=== PATIENT | female | born 1970 | race Caucasian/White ===

== ENCOUNTER 2017-06-21 07:35 | Day surgery (SDC) | payer OTHER ==
[~2017-06-21] VITALS: Ht 167.6 cm; Wt 77.3 kg
[~2017-06-21 07:35] MED LIST: CYCL-1 PO; HYDR-3965 PO; PANT-47 PO; SUCR1TAB34 PO; TRAZ-146 PO
[2017-06-21 07:40] VITALS: BP 107/73
[2017-06-21] MEDS ORDERED: fentaNYL/PF 50MCG/1 ML 2ML syringe ONE ×2 (07:54→09:15)
[2017-06-21] MEDS ORDERED: MIDAZolam 1mg/ml 10ml vial ONE (07:54)
[2017-06-21] MEDS ORDERED: CYCL-1 PO (08:00)
[2017-06-21] MEDS ORDERED: TRAZ-146 PO (08:01)
[2017-06-21] MEDS ORDERED: PANT-47 PO (08:04)
[2017-06-21 09:41] VITALS: BP 104/71
[2017-06-21 09:51] VITALS: BP 96/65
[2017-06-21 10:01] VITALS: BP 95/64
[2017-06-21 10:10] VITALS: BP 94/65
== END 2017-06-21 10:15 | disposition home or self-care (01) ==
LOC: GI LAB 07:35
PROVIDERS: ATTEND Internal Medicine Gastroenterology
DX: K52.9 Noninfective gastroenteritis and colitis, unspecified (principal); Z88.0 Allergy status to penicillin; Z88.6 Allergy status to analgesic agent; Z88.2 Allergy status to sulfonamides
CPT/HCPCS: 45380; 99152; J2250; J3010; J7030; A4620; G0500

== ENCOUNTER 2017-08-14 13:56 | Emergency (ER) | payer OTHER ==
[~2017-08-14] VITALS: Ht 167.6 cm; Wt 74.0 kg
[~2017-08-14 13:56] MED LIST changes: -HYDR-3965 PO; -SUCR1TAB34 PO
[2017-08-14] MEDS ORDERED: aspirin 81mg tab.chew PO ONE (14:10)
[2017-08-14 14:23] LABS: BASOPHILS % (AUTO) 0.5 % (0-1); EOSINOPHILS # (AUTO) 0.1 X10'3 (0-0.9); EOSINOPHILS % (AUTO) 2.3 % (0-6); HEMATOCRIT 38.5 % (35.0-45.0); HEMOGLOBIN 13.3 g/dl (12.0-16.0); LYMPHOCYTES # (AUTO) 2.2 X10'3 (1.1-4.8); LYMPHOCYTES % (AUTO) 36.8 % (21-51); MEAN CORPUSCULAR HEMOGLOBIN 30.9 PG (27.0-31.0); MEAN CORPUSCULAR HGB CONC 34.5 % (33.0-36.5); MEAN CORPUSCULAR VOLUME 89.8 FL (78-98); MEAN PLATELET VOLUME 8.6 FL (7.4-10.4); MONOCYTES # (AUTO) 0.4 X10'3 (0-0.9); MONOCYTES % (AUTO) 6.7 % (2-12); NEUTROPHILS # (AUTO) 3.3 X10'3 (1.8-7.7); NEUTROPHILS % (AUTO) 53.7 % (42-75); PLATELET COUNT 329 X10'3 (140-440); RED BLOOD COUNT 4.29 X10'6 (4.20-5.60); RED CELL DISTRIBUTION WIDTH 14.5 % (11.5-14.5); WHITE BLOOD COUNT 6.1 X10'3 (4.5-11.0)
[2017-08-14 14:33] LABS: D-DIMER 0.53 MG/L FEU (0-0.50)
[2017-08-14 14:45] LABS: ALANINE AMINOTRANSFERASE 21 U/L (12-78); ALBUMIN 4.1 G/DL (3.4-5.0); ALKALINE PHOSPHATASE 84 IU/L (46-116); ANION GAP 10 (8-16); ASPARTATE AMINO TRANSFERASE 19 U/L (10-37); BILIRUBIN,TOTAL 0.6 MG/DL (0.1-1.0); BLOOD UREA NITROGEN 19 MG/DL (7-18); BUN/CREATININE RATIO 22.1 (6.6-38.0); CALCIUM 9.5 MG/DL (8.5-10.1); CHLORIDE 103 MMOL/L (99-107); CREATININE 0.86 MG/DL (0.40-0.90); GLUCOSE 104 MG/DL (70-104); MAGNESIUM 1.9 MG/DL (1.5-2.4); POTASSIUM 3.5 MMOL/L (3.5-5.1); SODIUM 140 MMOL/L (135-145); TOTAL CARBON DIOXIDE 26.6 MMOL/L (24-32); TOTAL PROTEIN 8.3 G/DL (6.4-8.2); eGFR 71 ML/MIN
[2017-08-14] MEDS ORDERED: iohexol 350MG/ML 100ml bottle IV ONE (16:11)
[2017-08-14] MEDS ORDERED: ondansetron/PF 4mg/2ml inj IV ONE (16:30)
[2017-08-14 17:14] VITALS: BP 110/76
== END 2017-08-14 17:15 | disposition home or self-care (01) ==
LOC: ER 13:56
DX: R07.89 Other chest pain (principal); R06.02 Shortness of breath; M25.512 Pain in left shoulder; K21.9 Gastro-esophageal reflux disease without esophagitis; Z88.6 Allergy status to analgesic agent; Z88.1 Allergy status to other antibiotic agents; Z88.0 Allergy status to penicillin; Z88.2 Allergy status to sulfonamides
CPT/HCPCS: 36415; 71045; 71275; 80053; 83735; 83880; 84484; 85025; 85379; 93005; 96374; 99285; J2405; J7030; Q9967

== ENCOUNTER 2017-10-09 08:36 | Emergency (ER) | payer OTHER ==
[~2017-10-09] VITALS: Ht 167.6 cm; Wt 79.0 kg
[2017-10-09 09:39] LABS: BASOPHILS # (AUTO) 0.1 X10'3 (0-0.2); BASOPHILS % (AUTO) 1.3 % (0-1); EOSINOPHILS # (AUTO) 0.1 X10'3 (0-0.9); EOSINOPHILS % (AUTO) 2.4 % (0-6); HEMATOCRIT 39.7 % (35.0-45.0); HEMOGLOBIN 13.6 g/dl (12.0-16.0); LYMPHOCYTES # (AUTO) 1.3 X10'3 (1.1-4.8); MEAN CORPUSCULAR HEMOGLOBIN 30.7 PG (27.0-31.0); MEAN CORPUSCULAR HGB CONC 34.2 % (33.0-36.5); MEAN CORPUSCULAR VOLUME 89.9 FL (78-98); MEAN PLATELET VOLUME 9.2 FL (7.4-10.4); MONOCYTES # (AUTO) 0.3 X10'3 (0-0.9); MONOCYTES % (AUTO) 6.8 % (2-12); NEUTROPHILS # (AUTO) 2.8 X10'3 (1.8-7.7); NEUTROPHILS % (AUTO) 61.5 % (42-75); PLATELET COUNT 321 X10'3 (140-440); RED BLOOD COUNT 4.41 X10'6 (4.20-5.60); RED CELL DISTRIBUTION WIDTH 15.1 % (11.5-14.5); WHITE BLOOD COUNT 4.6 X10'3 (4.5-11.0)
[2017-10-09 09:47] LABS: PROTHROMBIN TIME 9.9 SECONDS (9.0-12.0)
[2017-10-09 09:55] LABS: ALANINE AMINOTRANSFERASE 27 U/L (12-78); ALBUMIN 3.6 G/DL (3.4-5.0); ALBUMIN/GLOBULIN RATIO 0.9 (1.1-1.5); ALKALINE PHOSPHATASE 88 IU/L (46-116); ANION GAP 11 (8-16); ASPARTATE AMINO TRANSFERASE 17 U/L (10-37); BILIRUBIN,TOTAL 0.8 MG/DL (0.1-1.0); BLOOD UREA NITROGEN 21 MG/DL (7-18); BUN/CREATININE RATIO 27.6 (6.6-38.0); CALCIUM 9.2 MG/DL (8.5-10.1); CHLORIDE 106 MMOL/L (99-107); CREATININE 0.76 MG/DL (0.40-0.90); GLUCOSE 98 MG/DL (70-104); POTASSIUM 4.1 MMOL/L (3.5-5.1); SODIUM 139 MMOL/L (135-145); TOTAL CARBON DIOXIDE 22.4 MMOL/L (24-32); TOTAL PROTEIN 7.6 G/DL (6.4-8.2); eGFR 81 ML/MIN
[2017-10-09] MEDS ORDERED: LIDOcaine Viscous 15ml cup MM ONE (10:20)
[2017-10-09] MEDS ORDERED: sucralfate 1gm/10ml UD suspension PO ONE (10:20)
[2017-10-09] MEDS ORDERED: SUCR1ORA2 PO (10:42)
[2017-10-09 11:20] VITALS: BP 138/78
== END 2017-10-09 11:22 | disposition home or self-care (01) ==
LOC: ER 08:36
DX: R12 Heartburn (principal); R10.9 Unspecified abdominal pain; R19.7 Diarrhea, unspecified; K21.9 Gastro-esophageal reflux disease without esophagitis; Z90.710 Acquired absence of both cervix and uterus; Z88.0 Allergy status to penicillin; Z88.2 Allergy status to sulfonamides; Z88.5 Allergy status to narcotic agent; F19.10 Other psychoactive substance abuse, uncomplicated
CPT/HCPCS: 36415; 80053; 85025; 85610; 93005; 99285

== ENCOUNTER 2018-01-16 02:49 | Emergency (ER) | payer OTHER ==
[~2018-01-16] VITALS: Ht 167.6 cm; Wt 81.4 kg
[~2018-01-16 02:49] MED LIST changes: +HYDR-569 PO; +ONDA4TAB9 SL; +PROC25SU31 RC; +SUCR1ORA2 PO
[2018-01-16] MEDS ORDERED: metoclopramide 5 mg/ml inj IV ONE (03:10)
[2018-01-16] MEDS ORDERED: normal saline 1000ML IV soln IVB ONE (03:10)
[2018-01-16] MEDS ORDERED: diphenhydrAMINE 50 mg/ml inj IV ONE (03:10)
[2018-01-16] MEDS ORDERED: LORazepam 2 mg/ml vial IV ONE (03:10)
[2018-01-16 03:42] LABS: CLARITY,URINE SLIGHTLY CLOUDY (Clear); COLOR,URINE YELLOW (Yellow); GLUCOSE, URINE NEGATIVE (Neg); KETONES,URINE NEGATIVE (Neg); LEUKOCYTE ESTERASE ,URINE SMALL (Neg); NITRITES, URINE NEGATIVE (Neg); OCCULT BLOOD,URINE SMALL (Neg); PH,URINE 5.5 (4.8-8.0); PROTEIN,URINE NEGATIVE (Neg); UROBILINOGEN,URINE 0.2 E.U/dL (0.2-1.0)
[2018-01-16 03:45] LABS: URINE HCG NEGATIVE (NEG)
[2018-01-16] MEDS ORDERED: glycopyrrolate 0.2mg/ml inj IV ONE (03:45)
[2018-01-16 03:48] LABS: UA COLLECTION TYPE CLN CATCH MIDSTREAM
[2018-01-16 03:49] LABS: BACTERIA,URINE FEW /HPF (Neg); RBC,URINE 0-2 /HPF (0-2); SQUAMOUS EPITHELIAL CELL,UR MODERATE /LPF (FEW)
[2018-01-16 03:59] LABS: BASOPHILS % (AUTO) 0.1 % (0-1); EOSINOPHILS # (AUTO) 0.1 X10'3 (0-0.9); EOSINOPHILS % (AUTO) 0.9 % (0-6); HEMATOCRIT 38.6 % (35.0-45.0); LYMPHOCYTES # (AUTO) 0.7 X10'3 (1.1-4.8); LYMPHOCYTES % (AUTO) 6.4 % (21-51); MEAN CORPUSCULAR HEMOGLOBIN 30.3 PG (27.0-31.0); MEAN CORPUSCULAR HGB CONC 33.7 % (33.0-36.5); MEAN CORPUSCULAR VOLUME 89.9 FL (78-98); MONOCYTES # (AUTO) 0.6 X10'3 (0-0.9); MONOCYTES % (AUTO) 5.5 % (2-12); NEUTROPHILS # (AUTO) 8.9 X10'3 (1.8-7.7); NEUTROPHILS % (AUTO) 87.1 % (42-75); PLATELET COUNT 299 X10'3 (140-440); RED CELL DISTRIBUTION WIDTH 14.8 % (11.5-14.5); WHITE BLOOD COUNT 10.2 X10'3 (4.5-11.0)
[2018-01-16 04:09] LABS: PROTHROMBIN TIME 10.6 SECONDS (9.0-12.0)
[2018-01-16 04:14] LABS: ALANINE AMINOTRANSFERASE 20 U/L (12-78); ALBUMIN 3.3 G/DL (3.4-5.0); ALBUMIN/GLOBULIN RATIO 0.9 (1.1-1.5); ALKALINE PHOSPHATASE 84 IU/L (46-116); ANION GAP 13 (8-16); ASPARTATE AMINO TRANSFERASE 15 U/L (10-37); BILIRUBIN,TOTAL 0.6 MG/DL (0.1-1.0); BLOOD UREA NITROGEN 13 MG/DL (7-18); BUN/CREATININE RATIO 16.3 (6.6-38.0); CALCIUM 8.8 MG/DL (8.5-10.1); CHLORIDE 106 MMOL/L (99-107); GLUCOSE 112 MG/DL (70-104); LIPASE 227 U/L (73-393); POTASSIUM 3.6 MMOL/L (3.5-5.1); SODIUM 140 MMOL/L (135-145); TOTAL CARBON DIOXIDE 20.7 MMOL/L (24-32); TOTAL PROTEIN 7.1 G/DL (6.4-8.2); eGFR 77 ML/MIN
[2018-01-16] MEDS ORDERED: CefTRIAXone 2gm/D5W 50ml 50 ML IV ONE (04:40)
[2018-01-16 04:57] VITALS: BP 147/88
== END 2018-01-16 05:42 | disposition home or self-care (01) ==
LOC: ER 02:50
DX: N39.0 Urinary tract infection, site not specified (principal); E86.0 Dehydration; R10.13 Epigastric pain; R19.7 Diarrhea, unspecified; R11.2 Nausea with vomiting, unspecified; K21.9 Gastro-esophageal reflux disease without esophagitis; F19.10 Other psychoactive substance abuse, uncomplicated; Z90.710 Acquired absence of both cervix and uterus; Z79.899 Other long term (current) drug therapy; Z88.0 Allergy status to penicillin; Z88.2 Allergy status to sulfonamides; Z88.5 Allergy status to narcotic agent; Z87.891 Personal history of nicotine dependence
CPT/HCPCS: 36415; 80053; 81001; 81025; 83690; 85025; 85610; 87088; 96361; 96365; 96375; 99284; J0696; J1200; J2060; J2765; J3490; J7030

== ENCOUNTER 2018-02-01 07:39 | Day surgery (SDC) | payer OTHER ==
[~2018-02-01] VITALS: Ht 167.6 cm; Wt 80.9 kg
[~2018-02-01 07:39] MED LIST changes: -ONDA4TAB9 SL; -TRAZ-146 PO; +TRAZ-219 PO
[2018-02-01 07:46] VITALS: BP 134/80
[2018-02-01] MEDS ORDERED: LIDOcaine Viscous 15ml cup ONE (07:47)
[2018-02-01] MEDS ORDERED: fentaNYL/PF 50MCG/1 ML 2ML syringe ONE (07:47)
[2018-02-01] MEDS ORDERED: MIDAZolam 5mg/5ml vial ONE (07:47)
[2018-02-01] MEDS ORDERED: SUCR1TAB PO (08:09)
[2018-02-01 09:21] VITALS: BP 98/65
[2018-02-01 09:31] VITALS: BP 109/71
[2018-02-01 09:41] VITALS: BP 107/69
[2018-02-01 09:51] VITALS: BP 106/77
== END 2018-02-01 10:05 | disposition home or self-care (01) ==
LOC: GI LAB 07:39
PROVIDERS: ATTEND Internal Medicine Gastroenterology
DX: K31.89 Other diseases of stomach and duodenum (principal); K21.9 Gastro-esophageal reflux disease without esophagitis; M19.072 Primary osteoarthritis, left ankle and foot; M19.071 Primary osteoarthritis, right ankle and foot; B19.20 Unspecified viral hepatitis C without hepatic coma; F03.90 Unspecified dementia, unspecified severity, without behavioral disturbance, psychotic disturbance, mood disturbance, and anxiety; J45.998 Other asthma; G89.29 Other chronic pain; F43.10 Post-traumatic stress disorder, unspecified; I25.2 Old myocardial infarction; F32.89 Other specified depressive episodes; Z79.82 Long term (current) use of aspirin; Z87.11 Personal history of peptic ulcer disease; Z79.891 Long term (current) use of opiate analgesic; Z88.0 Allergy status to penicillin; Z88.5 Allergy status to narcotic agent; Z93.6 Other artificial openings of urinary tract status; Z87.440 Personal history of urinary (tract) infections; Z88.6 Allergy status to analgesic agent; Z88.1 Allergy status to other antibiotic agents; Z72.89 Other problems related to lifestyle; Z90.710 Acquired absence of both cervix and uterus; Z88.2 Allergy status to sulfonamides; Z88.8 Allergy status to other drugs, medicaments and biological substances; Z87.891 Personal history of nicotine dependence; Z98.890 Other specified postprocedural states; Z79.899 Other long term (current) drug therapy; Z82.49 Family history of ischemic heart disease and other diseases of the circulatory system; Z83.49 Family history of other endocrine, nutritional and metabolic diseases; Z82.3 Family history of stroke
CPT/HCPCS: 43235; 99152; J2250; J3010; J7030; A4620; G0500

== ENCOUNTER 2018-04-22 11:31 | Emergency (ER) | payer OTHER ==
[~2018-04-22] VITALS: Ht 167.6 cm; Wt 77.3 kg
[~2018-04-22 11:31] MED LIST changes: +HYDR-4383 PO; -HYDR-569 PO; -PROC25SU31 RC; +SUCR1TAB PO
[2018-04-22 12:12] LABS: BASOPHILS # (AUTO) 0.1 X10'3 (0-0.2); BASOPHILS % (AUTO) 1.6 % (0-1); EOSINOPHILS # (AUTO) 0.1 X10'3 (0-0.9); HEMATOCRIT 37.2 % (35.0-45.0); HEMOGLOBIN 12.6 g/dl (12.0-16.0); LYMPHOCYTES # (AUTO) 1.6 X10'3 (1.1-4.8); LYMPHOCYTES % (AUTO) 30.9 % (21-51); MEAN CORPUSCULAR HEMOGLOBIN 30.4 PG (27.0-31.0); MEAN CORPUSCULAR HGB CONC 33.9 % (33.0-36.5); MEAN CORPUSCULAR VOLUME 89.7 FL (78-98); MEAN PLATELET VOLUME 9.4 FL (7.4-10.4); MONOCYTES # (AUTO) 0.3 X10'3 (0-0.9); MONOCYTES % (AUTO) 6.1 % (2-12); NEUTROPHILS # (AUTO) 3.2 X10'3 (1.8-7.7); NEUTROPHILS % (AUTO) 60.4 % (42-75); PLATELET COUNT 332 X10'3 (140-440); RED BLOOD COUNT 4.15 X10'6 (4.20-5.60); RED CELL DISTRIBUTION WIDTH 14.8 % (11.5-14.5); WHITE BLOOD COUNT 5.3 X10'3 (4.5-11.0)
[2018-04-22 12:27] LABS: ALANINE AMINOTRANSFERASE 23 U/L (12-78); ALBUMIN 3.5 G/DL (3.4-5.0); ALBUMIN/GLOBULIN RATIO 0.9 (1.1-1.5); ALKALINE PHOSPHATASE 83 IU/L (46-116); ANION GAP 9 (8-16); ASPARTATE AMINO TRANSFERASE 18 U/L (10-37); BILIRUBIN,TOTAL 0.5 MG/DL (0.1-1.0); BLOOD UREA NITROGEN 19 MG/DL (7-18); BUN/CREATININE RATIO 22.6 (6.6-38.0); CALCIUM 8.5 MG/DL (8.5-10.1); CHLORIDE 105 MMOL/L (99-107); CREATININE 0.84 MG/DL (0.40-0.90); GLUCOSE 104 MG/DL (70-104); POTASSIUM 3.8 MMOL/L (3.5-5.1); SODIUM 139 MMOL/L (135-145); TOTAL CARBON DIOXIDE 25.2 MMOL/L (24-32); TOTAL PROTEIN 7.4 G/DL (6.4-8.2); eGFR 72 ML/MIN
[2018-04-22 12:30] LABS: PROTHROMBIN TIME 10.1 SECONDS (9.0-12.0)
[2018-04-22 12:31] LABS: PARTIAL THROMBOPLASTIN TIME 26 SECONDS (22-32)
[2018-04-22 13:35] VITALS: BP 124/81
== END 2018-04-22 13:36 | disposition home or self-care (01) ==
LOC: ER 11:31
DX: R07.9 Chest pain, unspecified (principal); R42 Dizziness and giddiness; R06.02 Shortness of breath; R11.0 Nausea; R20.0 Anesthesia of skin; K21.9 Gastro-esophageal reflux disease without esophagitis; F19.10 Other psychoactive substance abuse, uncomplicated; Z88.0 Allergy status to penicillin; Z88.2 Allergy status to sulfonamides; Z88.6 Allergy status to analgesic agent; Z98.890 Other specified postprocedural states; Z90.49 Acquired absence of other specified parts of digestive tract; Z95.1 Presence of aortocoronary bypass graft; Z93.6 Other artificial openings of urinary tract status; Z98.61 Coronary angioplasty status
CPT/HCPCS: 36415; 71045; 80053; 84484; 85025; 85610; 85730; 93005; 99285

== ENCOUNTER 2018-09-01 14:10 | Emergency (ER) | payer OTHER ==
[~2018-09-01] VITALS: Ht 167.6 cm; Wt 80.0 kg
[2018-09-01] MEDS ORDERED: ondansetron 4mg rapidly disintigrating tab PO ONE (14:40)
[2018-09-01] MEDS ORDERED: mag hydrox/Alum hydrox/simeth 30ml oral suspension PO ONE (14:40)
[2018-09-01] MEDS ORDERED: famotidine 20mg tablet PO ONE (14:40)
[2018-09-01 15:01] LABS: BASOPHILS # (AUTO) 0.1 X10'3 (0-0.2); BASOPHILS % (AUTO) 1.4 % (0-1); EOSINOPHILS # (AUTO) 0.1 X10'3 (0-0.9); HEMOGLOBIN 13.3 g/dl (12.0-16.0); LYMPHOCYTES # (AUTO) 1.8 X10'3 (1.1-4.8); MEAN CORPUSCULAR HEMOGLOBIN 30.4 PG (27.0-31.0); MEAN CORPUSCULAR VOLUME 89.4 FL (78-98); MEAN PLATELET VOLUME 8.9 FL (7.4-10.4); MONOCYTES # (AUTO) 0.4 X10'3 (0-0.9); MONOCYTES % (AUTO) 6.6 % (2-12); NEUTROPHILS # (AUTO) 4.2 X10'3 (1.8-7.7); PLATELET COUNT 305 X10'3 (140-440); RED BLOOD COUNT 4.37 X10'6 (4.20-5.60); RED CELL DISTRIBUTION WIDTH 14.2 % (11.5-14.5); WHITE BLOOD COUNT 6.6 X10'3 (4.5-11.0)
[2018-09-01 15:12] LABS: PROTHROMBIN TIME 10.4 SECONDS (9.0-12.0)
[2018-09-01 15:13] LABS: CLARITY,URINE SLIGHTLY CLOUDY (Clear); COLOR,URINE YELLOW (Yellow); GLUCOSE, URINE NEGATIVE (Neg); KETONES,URINE NEGATIVE (Neg); LEUKOCYTE ESTERASE ,URINE NEGATIVE (Neg); NITRITES, URINE NEGATIVE (Neg); OCCULT BLOOD,URINE TRACE-LYSED (Neg); PH,URINE 5.5 (4.8-8.0); PROTEIN,URINE NEGATIVE (Neg); UA COLLECTION TYPE CLN CATCH MIDSTREAM; UROBILINOGEN,URINE 0.2 E.U/dL (0.2-1.0)
[2018-09-01 15:20] LABS: BACTERIA,URINE FEW /HPF (Neg); MUCUS STRANDS FEW /LPF (Neg); RBC,URINE 0-2 /HPF (0-2); SQUAMOUS EPITHELIAL CELL,UR MANY /LPF (FEW)
[2018-09-01 15:21] LABS: ALANINE AMINOTRANSFERASE 32 U/L (12-78); ALKALINE PHOSPHATASE 82 IU/L (46-116); ANION GAP 13 (8-16); ASPARTATE AMINO TRANSFERASE 20 U/L (10-37); BILIRUBIN,TOTAL 0.5 MG/DL (0.1-1.0); BLOOD UREA NITROGEN 15 MG/DL (7-18); BUN/CREATININE RATIO 19.5 (6.6-38.0); CALCIUM 9.3 MG/DL (8.5-10.1); CHLORIDE 104 MMOL/L (99-107); CREATININE 0.77 MG/DL (0.40-0.90); GLUCOSE 91 MG/DL (70-104); LIPASE 312 U/L (73-393); POTASSIUM 3.9 MMOL/L (3.5-5.1); SODIUM 140 MMOL/L (135-145); TOTAL CARBON DIOXIDE 22.6 MMOL/L (24-32); TOTAL PROTEIN 8.1 G/DL (6.4-8.2); eGFR 80 ML/MIN
[2018-09-01 15:21] LABS: URINE HCG NEGATIVE (NEG)
[2018-09-01] MEDS ORDERED: metoclopramide 10mg tablet PO ONE (15:50)
[2018-09-01] MEDS ORDERED: HYDROcodone/acetaminophen 5mg/325mg tablet PO ONE (15:50)
[2018-09-01] MEDS ORDERED: ONDA8TAB13 PO (15:51)
[2018-09-01] MEDS ORDERED: PROM25SU46 RC (15:51)
[2018-09-01 16:04] VITALS: BP 121/70
== END 2018-09-01 16:06 | disposition home or self-care (01) ==
LOC: ER 14:10
DX: R10.84 Generalized abdominal pain (principal); R11.10 Vomiting, unspecified; K21.9 Gastro-esophageal reflux disease without esophagitis; F19.10 Other psychoactive substance abuse, uncomplicated; Z86.19 Personal history of other infectious and parasitic diseases; Z90.710 Acquired absence of both cervix and uterus; Z98.890 Other specified postprocedural states; Z98.61 Coronary angioplasty status; Z88.0 Allergy status to penicillin; Z88.2 Allergy status to sulfonamides; Z88.5 Allergy status to narcotic agent; Z88.8 Allergy status to other drugs, medicaments and biological substances; Z79.899 Other long term (current) drug therapy
CPT/HCPCS: 36415; 80053; 81001; 81025; 83690; 85025; 85610; 99284; J8597

== ENCOUNTER 2019-01-05 05:32 | Emergency (ER) | payer OTHER ==
[~2019-01-05] VITALS: Ht 167.6 cm; Wt 76.9 kg
[~2019-01-05 05:32] MED LIST changes: +ONDA8TAB13 PO; +PROM25SU46 RC
[2019-01-05] MEDS ORDERED: haloperidol lactate 5mg/ml inj IM ONE (06:15)
[2019-01-05] MEDS ORDERED: LORazepam 2 mg/ml vial IM ONE (06:15)
[2019-01-05] MEDS ORDERED: normal saline 1000ML IV soln IVB ONE (06:20)
--- NOTE | 2019-01-05 06:25 | NUR ---
PT DIFFICULT IV START, MD LEIGH INFORMED AND PLACING ORDERS FOR IM MEDS FOR N/V
[2019-01-05 07:17] LABS: BASOPHILS % (AUTO) 0.6 % (0-1); EOSINOPHILS % (AUTO) 0.7 % (0-6); HEMATOCRIT 41.5 % (35.0-45.0); HEMOGLOBIN 13.8 g/dl (12.0-16.0); LYMPHOCYTES # (AUTO) 0.9 X10'3 (1.1-4.8); LYMPHOCYTES % (AUTO) 14.1 % (21-51); MEAN CORPUSCULAR HEMOGLOBIN 30.6 PG (27.0-31.0); MEAN CORPUSCULAR HGB CONC 33.3 g/dL (33.0-36.5); MEAN PLATELET VOLUME 9.9 FL (7.4-10.4); MONOCYTES # (AUTO) 0.3 X10'3 (0-0.9); MONOCYTES % (AUTO) 4.6 % (2-12); NEUTROPHILS # (AUTO) 4.9 X10'3 (1.8-7.7); PLATELET COUNT 296 X10'3 (140-440); RED BLOOD COUNT 4.51 X10'6 (4.20-5.60); RED CELL DISTRIBUTION WIDTH 14.2 % (11.5-14.5); WHITE BLOOD COUNT 6.1 X10'3 (4.5-11.0)
[2019-01-05 07:32] LABS: ALANINE AMINOTRANSFERASE 20 U/L (12-78); ALBUMIN 3.9 G/DL (3.4-5.0); ALKALINE PHOSPHATASE 83 IU/L (46-116); ANION GAP 14 (8-16); ASPARTATE AMINO TRANSFERASE 15 U/L (10-37); BILIRUBIN,TOTAL 0.6 MG/DL (0.1-1.0); BLOOD UREA NITROGEN 14 MG/DL (7-18); BUN/CREATININE RATIO 14.3 (6.6-38.0); CALCIUM 9.3 MG/DL (8.5-10.1); CHLORIDE 106 MMOL/L (99-107); CREATININE 0.98 MG/DL (0.40-0.90); GLUCOSE 140 MG/DL (70-104); LIPASE 381 U/L (73-393); POTASSIUM 3.3 MMOL/L (3.5-5.1); SODIUM 140 MMOL/L (135-145); TOTAL CARBON DIOXIDE 20.3 MMOL/L (24-32); TOTAL PROTEIN 7.8 G/DL (6.4-8.2); eGFR 60 ML/MIN
[2019-01-05 09:26] VITALS: BP 106/62
== END 2019-01-05 09:27 | disposition home or self-care (01) ==
LOC: ER 05:33
DX: R11.2 Nausea with vomiting, unspecified (principal); F12.929 Cannabis use, unspecified with intoxication, unspecified; F19.10 Other psychoactive substance abuse, uncomplicated; R10.84 Generalized abdominal pain; K21.9 Gastro-esophageal reflux disease without esophagitis; F41.9 Anxiety disorder, unspecified; F20.9 Schizophrenia, unspecified; Z86.19 Personal history of other infectious and parasitic diseases; Z90.710 Acquired absence of both cervix and uterus; Z98.890 Other specified postprocedural states; Z88.0 Allergy status to penicillin; Z88.2 Allergy status to sulfonamides; Z88.5 Allergy status to narcotic agent; Z88.8 Allergy status to other drugs, medicaments and biological substances; Z79.899 Other long term (current) drug therapy
CPT/HCPCS: 36415; 80053; 83690; 85025; 85610; 93005; 96360; 96361; 96372; 99284; J1630; J2060; J7030

== ENCOUNTER 2019-06-18 18:47 | Emergency (ER) | payer MEDICAID, OTHER ==
[~2019-06-18] VITALS: Ht 167.6 cm; Wt 69.5 kg
[2019-06-18] MEDS ORDERED: LORazepam 2 mg/ml vial IV ONE (19:25)
[2019-06-18] MEDS ORDERED: normal saline 1000ML IV soln IVB ONE ×2 (19:25)
[2019-06-18] MEDS ORDERED: metoclopramide 5 mg/ml inj IV ONE (19:25)
[2019-06-18] MEDS ORDERED: diphenhydrAMINE 50 mg/ml inj IV ONE (19:25)
[2019-06-18 20:04] LABS: BASOPHILS % (AUTO) 0.5 % (0-1); EOSINOPHILS % (AUTO) 0.5 % (0-6); HEMATOCRIT 37.8 % (35.0-45.0); HEMOGLOBIN 12.8 g/dl (12.0-16.0); LYMPHOCYTES # (AUTO) 0.2 X10'3 (1.1-4.8); LYMPHOCYTES % (AUTO) 4.8 % (21-51); MEAN CORPUSCULAR HEMOGLOBIN 30.9 PG (27.0-31.0); MEAN CORPUSCULAR HGB CONC 33.9 g/dL (33.0-36.5); MEAN PLATELET VOLUME 9.9 FL (7.4-10.4); MONOCYTES # (AUTO) 0.3 X10'3 (0-0.9); NEUTROPHILS # (AUTO) 3.8 X10'3 (1.8-7.7); NEUTROPHILS % (AUTO) 88.2 % (42-75); PLATELET COUNT 274 X10'3 (140-440); RED BLOOD COUNT 4.15 X10'6 (4.20-5.60); RED CELL DISTRIBUTION WIDTH 14.2 % (11.5-14.5); WHITE BLOOD COUNT 4.3 X10'3 (4.5-11.0)
[2019-06-18 20:05] VITALS: BP 122/70
[2019-06-18 20:14] LABS: ALANINE AMINOTRANSFERASE 21 U/L (12-78); ALKALINE PHOSPHATASE 74 IU/L (46-116); ANION GAP 15 (8-16); ASPARTATE AMINO TRANSFERASE 18 U/L (10-37); BILIRUBIN,TOTAL 0.5 MG/DL (0.1-1.0); BLOOD UREA NITROGEN 14 MG/DL (7-18); BUN/CREATININE RATIO 15.7 (6.6-38.0); CHLORIDE 106 MMOL/L (99-107); CREATININE 0.89 MG/DL (0.40-0.90); GLUCOSE 178 MG/DL (70-104); LIPASE 108 U/L (73-393); POTASSIUM 3.2 MMOL/L (3.5-5.1); SODIUM 142 MMOL/L (135-145); TOTAL CARBON DIOXIDE 20.8 MMOL/L (24-32); eGFR 67 ML/MIN
[2019-06-18] MEDS ORDERED: DICY10CA88 PO (21:12)
[2019-06-18] MEDS ORDERED: ONDA4TAB12 PO (21:12)
[2019-06-18 21:52] LABS: CLARITY,URINE SLIGHTLY CLOUDY (Clear); COLOR,URINE YELLOW (Yellow); GLUCOSE, URINE NEGATIVE (Neg); KETONES,URINE >=80 mg/dl (Neg); LEUKOCYTE ESTERASE ,URINE NEGATIVE (Neg); NITRITES, URINE NEGATIVE (Neg); OCCULT BLOOD,URINE SMALL (Neg); PROTEIN,URINE NEGATIVE (Neg); URINE HCG NEGATIVE (NEG); UROBILINOGEN,URINE 0.2 E.U/dL (0.2-1.0)
[2019-06-18 21:55] LABS: UA COLLECTION TYPE CLN CATCH MIDSTREAM
[2019-06-18 21:59] LABS: BACTERIA,URINE FEW /HPF (Neg); RBC,URINE NONE SEEN /HPF (0-2); SQUAMOUS EPITHELIAL CELL,UR MANY /LPF (FEW); WBC,URINE 0-4 /HPF (0-4)
== END 2019-06-18 21:19 | disposition home or self-care (01) ==
LOC: ER 18:49
DX: R11.2 Nausea with vomiting, unspecified (principal); R19.7 Diarrhea, unspecified; R10.13 Epigastric pain; K21.9 Gastro-esophageal reflux disease without esophagitis; F41.9 Anxiety disorder, unspecified; F32.9 Major depressive disorder, single episode, unspecified; F20.9 Schizophrenia, unspecified; F12.90 Cannabis use, unspecified, uncomplicated; Z90.710 Acquired absence of both cervix and uterus; Z86.19 Personal history of other infectious and parasitic diseases; Z98.890 Other specified postprocedural states; Z87.891 Personal history of nicotine dependence; Z88.0 Allergy status to penicillin; Z88.2 Allergy status to sulfonamides; Z88.5 Allergy status to narcotic agent; Z88.8 Allergy status to other drugs, medicaments and biological substances; Z79.899 Other long term (current) drug therapy
CPT/HCPCS: 36415; 80053; 81001; 81025; 83690; 85025; 96361; 96374; 96375; 99284; J1200; J2060; J2765; J7030

== ENCOUNTER 2020-07-05 07:50 | Emergency (ER) | payer BC, MEDICAID ==
[~2020-07-05] VITALS: Ht 167.6 cm; Wt 7.3 kg
[~2020-07-05 07:50] MED LIST changes: +ONDA4TAB12 PO; -PROM25SU46 RC; +PROM25SU9 RC; -TRAZ-219 PO; +TRAZ-256 PO
[2020-07-05 08:15] LABS: CLARITY,URINE CLEAR (Clear); COLOR,URINE YELLOW (Yellow); GLUCOSE, URINE NEGATIVE (Neg); KETONES,URINE NEGATIVE (Neg); LEUKOCYTE ESTERASE ,URINE NEGATIVE (Neg); NITRITES, URINE NEGATIVE (Neg); OCCULT BLOOD,URINE NEGATIVE (Neg); PH,URINE 6.5 (4.8-8.0); PROTEIN,URINE NEGATIVE (Neg); UROBILINOGEN,URINE 0.2 E.U/dL (0.2-1.0)
[2020-07-05 08:17] LABS: UA COLLECTION TYPE CLN CATCH MIDSTREAM
[2020-07-05] MEDS ORDERED: LIDOcaine 1% 30ml preserv. free vial SQ STA (09:23)
[2020-07-05 09:56] VITALS: BP 123/82
== END 2020-07-05 09:58 | disposition home or self-care (01) ==
LOC: ER 07:51
DX: M54.5 Low back pain (principal); K21.9 Gastro-esophageal reflux disease without esophagitis; F12.90 Cannabis use, unspecified, uncomplicated; Z86.19 Personal history of other infectious and parasitic diseases; Z87.11 Personal history of peptic ulcer disease; Z98.890 Other specified postprocedural states; Z98.891 History of uterine scar from previous surgery; Z90.710 Acquired absence of both cervix and uterus; Z88.0 Allergy status to penicillin; Z88.2 Allergy status to sulfonamides; Z88.8 Allergy status to other drugs, medicaments and biological substances; Z79.899 Other long term (current) drug therapy
CPT/HCPCS: 81003; 99283

== ENCOUNTER 2020-09-08 10:46 | Emergency (ER) | payer BC, MEDICAID ==
[~2020-09-08] VITALS: Ht 167.6 cm; Wt 73.2 kg
[2020-09-08 12:22] LABS: BASOPHILS % (AUTO) 0.8 % (0-1); EOSINOPHILS % (AUTO) 0.7 % (0-6); HEMATOCRIT 41.1 % (35.0-45.0); HEMOGLOBIN 13.5 g/dl (12.0-16.0); LYMPHOCYTES # (AUTO) 1.2 X10'3 (1.1-4.8); LYMPHOCYTES % (AUTO) 20.3 % (21-51); MEAN CORPUSCULAR HEMOGLOBIN 30.2 PG (27.0-31.0); MEAN CORPUSCULAR HGB CONC 32.9 g/dL (33.0-36.5); MEAN CORPUSCULAR VOLUME 91.6 FL (78-98); MEAN PLATELET VOLUME 9.1 FL (7.4-10.4); MONOCYTES # (AUTO) 0.3 X10'3 (0-0.9); MONOCYTES % (AUTO) 5.5 % (2-12); NEUTROPHILS # (AUTO) 4.2 X10'3 (1.8-7.7); NEUTROPHILS % (AUTO) 72.7 % (42-75); PLATELET COUNT 309 X10'3 (140-440); RED BLOOD COUNT 4.49 X10'6 (4.20-5.60); RED CELL DISTRIBUTION WIDTH 14.2 % (11.5-14.5); WHITE BLOOD COUNT 5.8 X10'3 (4.5-11.0)
[2020-09-08 12:36] LABS: ALANINE AMINOTRANSFERASE 22 U/L (12-78); ALBUMIN 3.9 G/DL (3.4-5.0); ALBUMIN/GLOBULIN RATIO 0.9 (1.1-1.5); ALKALINE PHOSPHATASE 77 IU/L (46-116); ANION GAP 10 (8-16); ASPARTATE AMINO TRANSFERASE 16 U/L (10-37); BILIRUBIN,TOTAL 0.4 MG/DL (0.1-1.0); BLOOD UREA NITROGEN 15 MG/DL (7-18); BUN/CREATININE RATIO 18.5 (6.6-38.0); CALCIUM 9.6 MG/DL (8.5-10.1); CHLORIDE 108 MMOL/L (99-107); CREATININE 0.81 MG/DL (0.40-0.90); GLUCOSE 101 MG/DL (70-104); LIPASE 289 U/L (73-393); POTASSIUM 4.1 MMOL/L (3.5-5.1); SODIUM 142 MMOL/L (135-145); TOTAL CARBON DIOXIDE 24.1 MMOL/L (24-32); TOTAL PROTEIN 8.1 G/DL (6.4-8.2); eGFR 75 ML/MIN
[2020-09-08] MEDS ORDERED: mag hydrox/Alum hydrox/simeth 30ml oral suspension PO ONE (13:20)
[2020-09-08] MEDS ORDERED: LIDOcaine Viscous 15ml cup MM ONE (13:20)
[2020-09-08] MEDS ORDERED: hyoscyamine 0.125mg TAB.SUBL SL ONE (13:45)
--- NOTE | 2020-09-08 15:02 | NUR ---
pt states the burning in her throat is gone but the pain is still there. informed MD's scribe to share with pt once the Doctor is done talking with a PA in the department
[2020-09-08] MEDS ORDERED: pantoprazole 40mg Tablet.DR PO SCH (16:05)
[2020-09-08] MEDS ORDERED: pantoprazole 40mg Tablet.DR PO ONE (16:10)
[2020-09-08] MEDS ORDERED: morphine 4 MG/ML inj SYRINge IM ONE (16:10)
[2020-09-08] MEDS ORDERED: HYDR-3965 PO (16:11)
[2020-09-08 16:25] VITALS: BP 125/81
[2020-09-09] MEDS ORDERED: ONDA4TAB12 PO (11:57)
[2020-09-09] MEDS ORDERED: ERYT-111 PO (11:57)
== END 2020-09-08 16:45 | disposition home or self-care (01) ==
LOC: ER 10:47
DX: R10.13 Epigastric pain (principal); R19.7 Diarrhea, unspecified; K21.9 Gastro-esophageal reflux disease without esophagitis; F41.9 Anxiety disorder, unspecified; F32.9 Major depressive disorder, single episode, unspecified; F20.9 Schizophrenia, unspecified; F12.90 Cannabis use, unspecified, uncomplicated; Z86.19 Personal history of other infectious and parasitic diseases; Z87.11 Personal history of peptic ulcer disease; Z90.710 Acquired absence of both cervix and uterus; Z98.890 Other specified postprocedural states; Z88.0 Allergy status to penicillin; Z88.1 Allergy status to other antibiotic agents; Z88.5 Allergy status to narcotic agent; Z79.899 Other long term (current) drug therapy
CPT/HCPCS: 36415; 80053; 83690; 85025; 96372; 99284; J2270

== ENCOUNTER 2020-09-09 09:41 | Emergency (ER) | payer BC, MEDICAID ==
[~2020-09-09] VITALS: Ht 167.6 cm; Wt 73.2 kg
[~2020-09-09 09:41] MED LIST changes: +HYDR-3965 PO
[2020-09-09 10:13] LABS: BASOPHILS % (AUTO) 0.5 % (0-1); EOSINOPHILS % (AUTO) 0.6 % (0-6); HEMATOCRIT 40.4 % (35.0-45.0); HEMOGLOBIN 13.6 g/dl (12.0-16.0); LYMPHOCYTES # (AUTO) 1.3 X10'3 (1.1-4.8); LYMPHOCYTES % (AUTO) 21.9 % (21-51); MEAN CORPUSCULAR HEMOGLOBIN 30.4 PG (27.0-31.0); MEAN CORPUSCULAR HGB CONC 33.5 g/dL (33.0-36.5); MEAN CORPUSCULAR VOLUME 90.8 FL (78-98); MEAN PLATELET VOLUME 9.4 FL (7.4-10.4); MONOCYTES # (AUTO) 0.4 X10'3 (0-0.9); MONOCYTES % (AUTO) 7.3 % (2-12); NEUTROPHILS # (AUTO) 4.1 X10'3 (1.8-7.7); NEUTROPHILS % (AUTO) 69.7 % (42-75); PLATELET COUNT 302 X10'3 (140-440); RED BLOOD COUNT 4.45 X10'6 (4.20-5.60); RED CELL DISTRIBUTION WIDTH 13.9 % (11.5-14.5); WHITE BLOOD COUNT 5.9 X10'3 (4.5-11.0)
[2020-09-09 10:27] LABS: ALANINE AMINOTRANSFERASE 27 U/L (12-78); ALBUMIN/GLOBULIN RATIO 0.9 (1.1-1.5); ALKALINE PHOSPHATASE 74 IU/L (46-116); ANION GAP 12 (8-16); ASPARTATE AMINO TRANSFERASE 23 U/L (10-37); BILIRUBIN,TOTAL 0.7 MG/DL (0.1-1.0); BLOOD UREA NITROGEN 14 MG/DL (7-18); BUN/CREATININE RATIO 17.9 (6.6-38.0); CALCIUM 9.5 MG/DL (8.5-10.1); CHLORIDE 104 MMOL/L (99-107); CREATININE 0.78 MG/DL (0.40-0.90); GLUCOSE 111 MG/DL (70-104); LIPASE 207 U/L (73-393); POTASSIUM 3.6 MMOL/L (3.5-5.1); SODIUM 140 MMOL/L (135-145); TOTAL CARBON DIOXIDE 23.7 MMOL/L (24-32); TOTAL PROTEIN 8.3 G/DL (6.4-8.2); eGFR 78 ML/MIN
[2020-09-09 10:55] LABS: URINE HCG NEGATIVE (NEG)
[2020-09-09] MEDS ORDERED: diphenhydrAMINE 50 mg/ml inj IV ONE (11:25)
[2020-09-09] MEDS ORDERED: metoclopramide 5 mg/ml inj IV ONE (11:25)
[2020-09-09] MEDS ORDERED: ketorolac trometh. 30mg/ml inj. IV ONE (11:25)
[2020-09-09] MEDS ORDERED: normal saline 1000ML IV soln IVB ONE ×2 (11:25)
[2020-09-09] MEDS ORDERED: ERYT-111 PO (11:57)
[2020-09-09] MEDS ORDERED: ONDA4TAB12 PO (11:57)
[2020-09-09] MEDS ORDERED: magnesium 2GM in 50ml NS 50 ML IV ONE (12:00)
--- NOTE | 2020-09-09 12:37 | NUR ---
DR MADRIGALFS IN ROOM TO ESTABLISH IV 20 G TO LEFT AC WITH ASSIST FROM THE US.
--- NOTE | 2020-09-09 12:48 | NUR ---
PT TAKEN TO XRAY VIA [facility] BY Picse[facility].
[2020-09-09 14:12] VITALS: BP 110/67
--- NOTE | 2020-09-09 14:34 | NUR ---
PT FEELING BETTER, DENIES PAIN AND NAUSEA. PT CLEARED FOR DC. MOM AT BEDSIDE FOR RIDE HOME. RX FOR DC.
== END 2020-09-09 14:36 | disposition home or self-care (01) ==
LOC: ER 09:42
DX: E86.0 Dehydration (principal); R11.2 Nausea with vomiting, unspecified; R10.13 Epigastric pain; K21.9 Gastro-esophageal reflux disease without esophagitis; F41.9 Anxiety disorder, unspecified; F32.9 Major depressive disorder, single episode, unspecified; F20.9 Schizophrenia, unspecified; F12.90 Cannabis use, unspecified, uncomplicated; Z90.710 Acquired absence of both cervix and uterus; Z98.890 Other specified postprocedural states; Z87.891 Personal history of nicotine dependence; Z88.0 Allergy status to penicillin; Z88.2 Allergy status to sulfonamides; Z88.8 Allergy status to other drugs, medicaments and biological substances; Z79.899 Other long term (current) drug therapy
CPT/HCPCS: 36415; 71045; 74018; 80053; 81025; 83690; 85025; 96365; 96375; 99284; J1200; J1885; J2765; J3475; J7030

== ENCOUNTER 2021-01-23 20:56 | Emergency (ER) | payer BC, MEDICAID ==
[~2021-01-23] VITALS: Ht 167.6 cm; Wt 70.0 kg
[~2021-01-23 20:56] MED LIST changes: -HYDR-3965 PO
[2021-01-23] MEDS ORDERED: LIDOcaine Viscous 15ml cup MM ONE (21:40)
[2021-01-23] MEDS ORDERED: mag hydrox/Alum hydrox/simeth 30ml oral suspension PO ONE (21:40)
[2021-01-23 22:04] VITALS: BP 123/87
== END 2021-01-23 22:05 | disposition home or self-care (01) ==
LOC: ER 20:57
DX: K13.79 Other lesions of oral mucosa (principal); K21.9 Gastro-esophageal reflux disease without esophagitis; F41.9 Anxiety disorder, unspecified; F32.9 Major depressive disorder, single episode, unspecified; F20.9 Schizophrenia, unspecified
CPT/HCPCS: 99283

== ENCOUNTER 2021-08-24 08:11 | Emergency (ER) | payer MEDICAID ==
[~2021-08-24] VITALS: Ht 167.6 cm; Wt 72.7 kg
[2021-08-24] MEDS ORDERED: ondansetron 4mg rapidly disintigrating tab PO ONE (08:55)
[2021-08-24] MEDS ORDERED: acetaminophen 325mg tablet PO ONE (09:00)
[2021-08-24] MEDS ORDERED: ALB0.5UD IH (09:17)
[2021-08-24] MEDS ORDERED: BUPR100T5 PO (09:17)
[2021-08-24] MEDS ORDERED: SERT-153 PO (09:17)
[2021-08-24] MEDS ORDERED: ERYT250C69 PO (09:18)
[2021-08-24] MEDS ORDERED: traMADol 50MG tablet PO ONE (10:20)
[2021-08-24] MEDS ORDERED: proCHLORperazine 10 MG/2 ml inj IV ONE (11:10)
[2021-08-24] MEDS ORDERED: ONDA4TAB12 PO (11:10)
[2021-08-24] MEDS ORDERED: normal saline 1000ML IV soln IVB ONE (11:10)
[2021-08-24 12:17] VITALS: BP 115/71
== END 2021-08-24 12:19 | disposition home or self-care (01) ==
LOC: ER 08:11
DX: S06.0X9A Concussion with loss of consciousness of unspecified duration, initial encounter (principal); S76.012A Strain of muscle, fascia and tendon of left hip, initial encounter; K21.9 Gastro-esophageal reflux disease without esophagitis; F41.9 Anxiety disorder, unspecified; F20.9 Schizophrenia, unspecified; Z88.0 Allergy status to penicillin; Z88.2 Allergy status to sulfonamides; Z88.5 Allergy status to narcotic agent; W19.XXXA Unspecified fall, initial encounter; Y93.89 Activity, other specified; Y92.89 Other specified places as the place of occurrence of the external cause; Y99.8 Other external cause status
CPT/HCPCS: 70450; 73502; 96361; 96374; 99285; J0780; J7030

== ENCOUNTER 2021-12-07 20:11 | Emergency (ER) | payer MEDICAID ==
[~2021-12-07] VITALS: Ht 167.6 cm; Wt 73.6 kg
[~2021-12-07 20:11] MED LIST changes: +ALB0.5UD IH; +BUPR100T5 PO; -CYCL-1 PO; +ERYT250C69 PO; -HYDR-4383 PO; -ONDA8TAB13 PO; -PROM25SU9 RC; +SERT-153 PO; -SUCR1ORA2 PO; -SUCR1TAB PO; -TRAZ-256 PO
[2021-12-07 20:16] VITALS: BP 148/93
== END 2021-12-08 00:19 | disposition left against medical advice (07) ==
LOC: ER 20:12
DX: R05.9 Cough, unspecified (principal); Z53.21 Procedure and treatment not carried out due to patient leaving prior to being seen by health care provider

== ENCOUNTER 2022-02-28 09:18 | Emergency (ER) | payer MEDICAID ==
[~2022-02-28] VITALS: Ht 167.6 cm; Wt 70.5 kg
[2022-02-28 09:35] VITALS: BP 130/88
[2022-02-28] MEDS ORDERED: carBAMazepine 100mg chewable tablet PO ONE (10:25)
[2022-02-28] MEDS ORDERED: ketorolac trometh. 30mg/ml inj. IM ONE (10:25)
[2022-02-28] MEDS ORDERED: CARB100O PO ×2 (10:25)
[2022-02-28] MEDS ORDERED: ondansetron 4mg rapidly disintigrating tab PO ONE (10:25)
== END 2022-02-28 10:56 | disposition home or self-care (01) ==
LOC: ER 09:18
DX: G44.52 New daily persistent headache (NDPH) (principal); G50.0 Trigeminal neuralgia; K21.9 Gastro-esophageal reflux disease without esophagitis; G43.909 Migraine, unspecified, not intractable, without status migrainosus; F31.9 Bipolar disorder, unspecified; F20.9 Schizophrenia, unspecified; Z87.19 Personal history of other diseases of the digestive system; Z88.0 Allergy status to penicillin; Z88.2 Allergy status to sulfonamides; Z79.899 Other long term (current) drug therapy; Z88.5 Allergy status to narcotic agent; Z88.1 Allergy status to other antibiotic agents; Z79.1 Long term (current) use of non-steroidal anti-inflammatories (NSAID)
CPT/HCPCS: 96372; 99283; J1885

== ENCOUNTER 2022-03-04 07:19 | Inpatient (IN) | payer MEDICAID ==
[~2022-03-04] VITALS: Ht 167.6 cm; Wt 70.5 kg
[~2022-03-04 07:19] MED LIST changes: +CARB100O PO
[2022-03-04] MEDS ORDERED: normal saline 1000ml 1,000 ML IV ONE (08:00)
[2022-03-04] MEDS ORDERED: ondansetron/PF 4mg/2ml inj IV ONE (08:20)
[2022-03-04] MEDS ORDERED: ketorolac trometh. 30mg/ml inj. IV ONE (08:20)
[2022-03-04] MEDS ORDERED: SUMAtriptan succ. 6 MG/0.5ml vial SQ ONE (08:20)
[2022-03-04 09:02] LABS: BASOPHILS % (AUTO) 0.5 % (0-1); EOSINOPHILS # (AUTO) 0.1 X10'3 (0-0.9); EOSINOPHILS % (AUTO) 1.6 % (0-6); HEMATOCRIT 39.9 % (35.0-45.0); HEMOGLOBIN 13.4 g/dl (12.0-16.0); LYMPHOCYTES # (AUTO) 1.1 X10'3 (1.1-4.8); LYMPHOCYTES % (AUTO) 16.8 % (21-51); MEAN CORPUSCULAR HEMOGLOBIN 31.2 PG (27.0-31.0); MEAN CORPUSCULAR HGB CONC 33.6 g/dL (33.0-36.5); MEAN CORPUSCULAR VOLUME 92.7 FL (78-98); MEAN PLATELET VOLUME 8.9 FL (7.4-10.4); MONOCYTES # (AUTO) 0.4 X10'3 (0-0.9); MONOCYTES % (AUTO) 5.6 % (2-12); NEUTROPHILS # (AUTO) 5.1 X10'3 (1.8-7.7); NEUTROPHILS % (AUTO) 75.5 % (42-75); PLATELET COUNT 312 X10'3 (140-440); RED CELL DISTRIBUTION WIDTH 14.8 % (11.5-14.5); WHITE BLOOD COUNT 6.8 X10'3 (4.5-11.0)
[2022-03-04 09:08] LABS: URINE HCG NEGATIVE (NEG)
[2022-03-04 09:09] LABS: CLARITY,URINE CLEAR (Clear); COLOR,URINE YELLOW (Yellow); GLUCOSE, URINE NEGATIVE (Neg); KETONES,URINE NEGATIVE (Neg); LEUKOCYTE ESTERASE ,URINE NEGATIVE (Neg); NITRITES, URINE NEGATIVE (Neg); OCCULT BLOOD,URINE NEGATIVE (Neg); PH,URINE 8.5 (4.8-8.0); PROTEIN,URINE NEGATIVE (Neg); UROBILINOGEN,URINE 0.2 E.U/dL (0.2-1.0)
[2022-03-04 09:11] LABS: UA COLLECTION TYPE CLN CATCH MIDSTREAM
[2022-03-04 09:20] LABS: ALANINE AMINOTRANSFERASE 18 U/L (12-78); ALBUMIN 3.7 G/DL (3.4-5.0); ALKALINE PHOSPHATASE 78 IU/L (46-116); ANION GAP 10 (8-16); ASPARTATE AMINO TRANSFERASE 18 U/L (10-37); BILIRUBIN,TOTAL 0.6 MG/DL (0.1-1.0); BLOOD UREA NITROGEN 15 MG/DL (7-18); BUN/CREATININE RATIO 18.5 (6.6-38.0); CALCIUM 9.3 MG/DL (8.5-10.1); CHLORIDE 104 MMOL/L (99-107); CREATININE 0.81 MG/DL (0.40-0.90); GLUCOSE 107 MG/DL (70-104); LIPASE 223 U/L (73-393); SODIUM 138 MMOL/L (135-145); TOTAL CARBON DIOXIDE 23.9 MMOL/L (24-32); TOTAL PROTEIN 7.5 G/DL (6.4-8.2); eGFR 74 ML/MIN
[2022-03-04] MEDS ORDERED: aspirin 325mg tablet PO ONE (10:25)
[2022-03-04] MEDS ORDERED: ondansetron 4mg rapidly disintigrating tab PO PRN (10:40)
[2022-03-04] MEDS ORDERED: acetaminophen 325mg tablet PO PRN ×2 (10:40)
[2022-03-04] MEDS ORDERED: magnesium 2GM in 50ml NS 50 ML IV PRN (10:40)
[2022-03-04] MEDS ORDERED: ondansetron/PF 4mg/2ml inj IV PRN (10:40)
[2022-03-04] MEDS ORDERED: POTASSIUM BICARB 20meq eff tab 20 MEQ TABLET.EFF PO PRN ×2 (10:40)
[2022-03-04] MEDS ORDERED: magnesium hydroxide 30ml (MOM) UD suspension PO PRN (10:40)
[2022-03-04] MEDS ORDERED: bisacodyl 10mg suppository rectal RC PRN (10:40)
[2022-03-04] MEDS ORDERED: mag hydrox/Alum hydrox/simeth 30ml oral suspension PO PRN (10:40)
[2022-03-04] MEDS ORDERED: potassium CL 10mEq/100ml bag 100 ML IV PRN (10:40)
[2022-03-04] MEDS ORDERED: acetaminophen 650mg rectal suppository RC PRN (10:40)
[2022-03-04] MEDS ORDERED: metoclopramide 5 mg/ml inj IV PRN (10:40)
[2022-03-04] MEDS ORDERED: magnesium Cl slow-release 64mg tablet PO PRN (10:40)
[2022-03-04] MEDS ORDERED: morphine 2 MG/ML inj. syringe IV PRN (10:40)
[2022-03-04] MEDS ORDERED: magnesium 4gm in 100ml NS 100 ML IV PRN (10:40)
[2022-03-04] MEDS: normal saline 1000ml 1,000 ML IV SCH ×2 (10:58→21:36)
[2022-03-04] MEDS ORDERED: iohexol 350MG/ML 100ml bottle IV ONE (10:58)
[2022-03-04 11:33] LABS: C-REACTIVE PROTEIN 0.07 MG/DL (0.0-0.5); MAGNESIUM 2.1 MG/DL (1.5-2.4); PHOSPHORUS 3.2 MG/DL (2.3-4.5)
[2022-03-04] MEDS ORDERED: BUPR300T86 PO (12:33)
[2022-03-04] MEDS ORDERED: SERT-434 PO (12:33)
[2022-03-04] MEDS ORDERED: CARB100T15 PO (12:33)
[2022-03-04] MEDS: HYDROcodone/acetaminophen 5mg/325mg tablet PO PRN (14:53)
[2022-03-04 15:10] VITALS: BP 128/85
[2022-03-04] MEDS: ACYCLOVIR IV SCH (17:12)
[2022-03-04] MEDS: NORMAL SALINE IV SCH (17:12)
[2022-03-04 18:00] VITALS: BP 115/76
--- NOTE | 2022-03-04 18:44 | NUR ---
Problems reprioritized. Patient report given, questions answered & plan of care reviewed with TIFFANIE Villavicencio.
[2022-03-04] MEDS: K and/or MAG REPLACEMENT MC SCH (19:44)
[2022-03-04] MEDS: docusate sod 100mg capsule PO SCH (19:51)
[2022-03-04] MEDS ORDERED: carBAMazepine 100mg chewable tablet PO SCH (20:00)
[2022-03-04] MEDS ORDERED: temazepam 15mg capsule PO PRN (21:00)
[2022-03-04 22:00] VITALS: BP 120/67
[2022-03-04] MEDS: HYDROcodone/acetaminophen 10/325mg tab PO PRN (22:16)
[2022-03-05] MEDS: gabapentin 400mg capsule PO SCH ×4 (00:07→23:42)
[2022-03-05] MEDS: ACYCLOVIR IV SCH ×4 (00:07→23:42)
[2022-03-05] MEDS: NORMAL SALINE IV SCH ×4 (00:07→23:42)
[2022-03-05] MEDS: HYDROcodone/acetaminophen 10/325mg tab PO PRN ×2 (01:53→23:26)
[2022-03-05 02:00] VITALS: BP 108/55
[2022-03-05 05:00] VITALS: BP 123/73
--- NOTE | 2022-03-05 05:01 | NUR ---
METALS ANALYST documentation: I have reviewed and agree with all interventions, assessments performed and documented by Nya ADORNO.
[2022-03-05] MEDS: HYDROcodone/acetaminophen 5mg/325mg tablet PO PRN (05:38)
--- NOTE | 2022-03-05 06:08 | NUR ---
Problems reprioritized. Patient report given, questions answered & plan of care reviewed with Shelly MORENO.
[2022-03-05] MEDS: normal saline 1000ml 1,000 ML IV SCH ×2 (06:40→23:43)
--- NOTE | 2022-03-05 06:49 | NUR ---
Patient in room [facility] 4016. I have received report from TIFFANIE Villavicencio and had the opportunity to ask questions and assume patient care.
[2022-03-05 07:23] LABS: BASOPHILS % (AUTO) 1.2 % (0-1); EOSINOPHILS # (AUTO) 0.1 X10'3 (0-0.9); HEMATOCRIT 36.2 % (35.0-45.0); HEMOGLOBIN 12.2 g/dl (12.0-16.0); LYMPHOCYTES # (AUTO) 1.2 X10'3 (1.1-4.8); LYMPHOCYTES % (AUTO) 35.9 % (21-51); MEAN CORPUSCULAR HEMOGLOBIN 31.3 PG (27.0-31.0); MEAN CORPUSCULAR HGB CONC 33.6 g/dL (33.0-36.5); MEAN CORPUSCULAR VOLUME 93.2 FL (78-98); MEAN PLATELET VOLUME 9.4 FL (7.4-10.4); MONOCYTES # (AUTO) 0.3 X10'3 (0-0.9); MONOCYTES % (AUTO) 9.1 % (2-12); NEUTROPHILS # (AUTO) 1.7 X10'3 (1.8-7.7); NEUTROPHILS % (AUTO) 50.8 % (42-75); PLATELET COUNT 270 X10'3 (140-440); RED BLOOD COUNT 3.89 X10'6 (4.20-5.60); RED CELL DISTRIBUTION WIDTH 14.9 % (11.5-14.5); WHITE BLOOD COUNT 3.4 X10'3 (4.5-11.0)
[2022-03-05 07:48] LABS: ALANINE AMINOTRANSFERASE 18 U/L (12-78); ALBUMIN 3.4 G/DL (3.4-5.0); ALKALINE PHOSPHATASE 68 IU/L (46-116); ANION GAP 9 (8-16); ASPARTATE AMINO TRANSFERASE 14 U/L (10-37); BILIRUBIN,TOTAL 0.5 MG/DL (0.1-1.0); BLOOD UREA NITROGEN 17 MG/DL (7-18); BUN/CREATININE RATIO 23.9 (6.6-38.0); C-REACTIVE PROTEIN 0.13 MG/DL (0.0-0.5); CALCIUM 8.2 MG/DL (8.5-10.1); CHLORIDE 108 MMOL/L (99-107); CREATININE 0.71 MG/DL (0.40-0.90); GLUCOSE 93 MG/DL (70-104); MAGNESIUM 1.9 MG/DL (1.5-2.4); POTASSIUM 3.9 MMOL/L (3.5-5.1); SODIUM 140 MMOL/L (135-145); TOTAL CARBON DIOXIDE 23.1 MMOL/L (24-32); TOTAL PROTEIN 6.7 G/DL (6.4-8.2); eGFR 86 ML/MIN
[2022-03-05] MEDS: K and/or MAG REPLACEMENT MC SCH ×2 (08:00→20:00)
[2022-03-05] MEDS ORDERED: PERFLUTREN PROTEIN-A MICROSPHR (Optison) 0.22 MG/ML 3ML VIAL IV ONE (08:05)
[2022-03-05] MEDS: docusate sod 100mg capsule PO SCH ×2 (09:03→19:18)
[2022-03-05] MEDS: aspirin 325mg tablet PO SCH (09:03)
[2022-03-05] MEDS: buPROPion SR 150mg tablet PO SCH (09:04)
[2022-03-05] MEDS: sertraline 50mg tablet PO SCH (09:04)
[2022-03-05 10:00] VITALS: BP 139/85
--- NOTE | 2022-03-05 10:10 | NUR ---
Malnutrition consult: Pt reports 2-13 lb wt loss with decreased appetite per malnutrition risk screen with RN. Most recent scaled wt hx in EMR is 73.18 kg taken 09/09/20, current scaled wt is 70.45 kg. Noted pt documented as 73.64 kg 12/07/21 though no documentation of how wt was obtained. If accurate this would be non-significant wt loss of 4% in three months. Pt on a heart healthy diet, documented with 25-50% PO intake of first meal. Only documented mild weakness is to left side. Pt s/p BSS with ST recs to continue regular consistency of food as pt swallowing well with no s/s of aspiration. Pt with no documented edema and appears well developed well nourished per H&P. Pt currently lacks a minimum of two criteria for malnutrition. Will continue to follow. Addendum: 03/05/22 at [address] Amended: Links added.
[2022-03-05] MEDS ORDERED: GADOTERATE MEGLUMINE 7.5 MMOL/15 ML VIAL IV ONE ×2 (17:20→17:21)
[2022-03-05 18:00] VITALS: BP 132/83
--- NOTE | 2022-03-05 18:25 | NUR ---
Problems reprioritized. Patient report given, questions answered & plan of care reviewed with TIFFANIE Villavicencio.
[2022-03-05] MEDS: carBAMazepine 100mg chewable tablet PO SCH (19:19)
[2022-03-05 22:00] VITALS: BP 140/88
[2022-03-06 02:00] VITALS: BP 132/81
[2022-03-06] MEDS: HYDROcodone/acetaminophen 10/325mg tab PO PRN ×2 (03:06→22:52)
--- NOTE | 2022-03-06 04:30 | NUR ---
ENGINEERING PROGRAMMER documentation: I have reviewed and agree with all interventions, assessments performed and documented by Nya ADORNO.
[2022-03-06 05:00] VITALS: BP 131/82
--- NOTE | 2022-03-06 06:19 | NUR ---
Problems reprioritized. Patient report given, questions answered & plan of care reviewed with Shelly MORENO.
--- NOTE | 2022-03-06 06:59 | NUR ---
Patient in room [facility] 4016. I have received report from TIFFANIE Villavicencio and had the opportunity to ask questions and assume patient care.
[2022-03-06 07:00] LABS: BASOPHILS % (AUTO) 0.6 % (0-1); EOSINOPHILS # (AUTO) 0.1 X10'3 (0-0.9); EOSINOPHILS % (AUTO) 2.2 % (0-6); HEMATOCRIT 35.4 % (35.0-45.0); HEMOGLOBIN 11.8 g/dl (12.0-16.0); LYMPHOCYTES # (AUTO) 1.2 X10'3 (1.1-4.8); MEAN CORPUSCULAR HEMOGLOBIN 30.9 PG (27.0-31.0); MEAN CORPUSCULAR HGB CONC 33.3 g/dL (33.0-36.5); MEAN CORPUSCULAR VOLUME 92.7 FL (78-98); MEAN PLATELET VOLUME 9.4 FL (7.4-10.4); MONOCYTES # (AUTO) 0.4 X10'3 (0-0.9); MONOCYTES % (AUTO) 8.7 % (2-12); NEUTROPHILS # (AUTO) 2.5 X10'3 (1.8-7.7); NEUTROPHILS % (AUTO) 59.5 % (42-75); PLATELET COUNT 272 X10'3 (140-440); RED BLOOD COUNT 3.82 X10'6 (4.20-5.60); RED CELL DISTRIBUTION WIDTH 14.6 % (11.5-14.5); WHITE BLOOD COUNT 4.3 X10'3 (4.5-11.0)
[2022-03-06 07:14] LABS: ALANINE AMINOTRANSFERASE 15 U/L (12-78); ALBUMIN 3.2 G/DL (3.4-5.0); ALKALINE PHOSPHATASE 62 IU/L (46-116); ANION GAP 8 (8-16); ASPARTATE AMINO TRANSFERASE 13 U/L (10-37); BILIRUBIN,TOTAL 0.4 MG/DL (0.1-1.0); BLOOD UREA NITROGEN 8 MG/DL (7-18); BUN/CREATININE RATIO 11.6 (6.6-38.0); C-REACTIVE PROTEIN < 0.05 MG/DL (0.0-0.5); CALCIUM 8.2 MG/DL (8.5-10.1); CHLORIDE 107 MMOL/L (99-107); CREATININE 0.69 MG/DL (0.40-0.90); GLUCOSE 92 MG/DL (70-104); MAGNESIUM 1.8 MG/DL (1.5-2.4); POTASSIUM 3.9 MMOL/L (3.5-5.1); SODIUM 140 MMOL/L (135-145); TOTAL CARBON DIOXIDE 25.2 MMOL/L (24-32); TOTAL PROTEIN 6.5 G/DL (6.4-8.2); eGFR 89 ML/MIN
[2022-03-06] MEDS: ACYCLOVIR IV SCH ×3 (07:51→23:51)
[2022-03-06] MEDS: NORMAL SALINE IV SCH ×3 (07:51→23:51)
[2022-03-06] MEDS: aspirin 325mg tablet PO SCH (07:52)
[2022-03-06] MEDS: carBAMazepine 100mg chewable tablet PO SCH ×2 (07:52→20:00)
[2022-03-06] MEDS: sertraline 50mg tablet PO SCH (07:52)
[2022-03-06] MEDS: docusate sod 100mg capsule PO SCH ×2 (07:52→20:00)
[2022-03-06] MEDS: gabapentin 400mg capsule PO SCH ×3 (07:53→23:51)
[2022-03-06] MEDS: buPROPion SR 150mg tablet PO SCH (07:53)
[2022-03-06] MEDS: K and/or MAG REPLACEMENT MC SCH ×2 (08:00→19:27)
[2022-03-06 10:00] VITALS: BP 135/90
[2022-03-06] MEDS: LORazepam 2 mg/ml vial IV PRN (12:29)
[2022-03-06] MEDS ORDERED: LORazepam 2 mg/ml vial ONE (12:30)
[2022-03-06] MEDS: normal saline 1000ml 1,000 ML IV SCH ×3 (12:40→22:40)
[2022-03-06] MEDS: morphine 2 MG/ML inj. syringe IV PRN ×2 (12:52→21:31)
[2022-03-06 17:23] LABS: URINE AMPHETAMINE SCREEN NEGATIVE (Neg); URINE BARBITUATE SCREEN NEGATIVE (Neg); URINE BENZODIAZEPINES SCREEN NEGATIVE (Neg); URINE CANNABINOID SCREEN POSITIVE (Neg); URINE COCAINE SCREEN NEGATIVE (Neg); URINE METHADONE SCREEN NEGATIVE (Neg); URINE OPIATE SCREEN POSITIVE (Neg); URINE PHENCYCLIDINE SCREEN NEGATIVE (Neg)
[2022-03-06 18:00] VITALS: BP 149/71
--- NOTE | 2022-03-06 18:48 | NUR ---
Problems reprioritized. Patient report given, questions answered & plan of care reviewed with TIFFANIE Patel.
--- NOTE | 2022-03-06 20:09 | NUR ---
gently flushed IV - flushed well and patient can taste saline. will run acyclovir slowly - at 50ml/hr
--- NOTE | 2022-03-06 21:31 | NUR ---
pt can still taste saline, but area at insertion site is getting hard. will attempt to restart IV
[2022-03-06 22:00] VITALS: BP 121/73
[2022-03-07 05:56] LABS: BASOPHILS % (AUTO) 0.9 % (0-1); EOSINOPHILS # (AUTO) 0.1 X10'3 (0-0.9); EOSINOPHILS % (AUTO) 2.5 % (0-6); HEMATOCRIT 38.1 % (35.0-45.0); HEMOGLOBIN 12.6 g/dl (12.0-16.0); LYMPHOCYTES # (AUTO) 1.6 X10'3 (1.1-4.8); MEAN CORPUSCULAR HEMOGLOBIN 30.3 PG (27.0-31.0); MEAN CORPUSCULAR HGB CONC 33.1 g/dL (33.0-36.5); MEAN CORPUSCULAR VOLUME 91.7 FL (78-98); MEAN PLATELET VOLUME 10.1 FL (7.4-10.4); MONOCYTES # (AUTO) 0.4 X10'3 (0-0.9); MONOCYTES % (AUTO) 8.9 % (2-12); NEUTROPHILS # (AUTO) 2.2 X10'3 (1.8-7.7); NEUTROPHILS % (AUTO) 50.7 % (42-75); PLATELET COUNT 259 X10'3 (140-440); RED BLOOD COUNT 4.15 X10'6 (4.20-5.60); RED CELL DISTRIBUTION WIDTH 14.6 % (11.5-14.5); WHITE BLOOD COUNT 4.4 X10'3 (4.5-11.0)
[2022-03-07 06:00] VITALS: BP 111/70
[2022-03-07 06:07] LABS: ALANINE AMINOTRANSFERASE 19 U/L (12-78); ALBUMIN 3.5 G/DL (3.4-5.0); ALKALINE PHOSPHATASE 69 IU/L (46-116); ANION GAP 10 (8-16); ASPARTATE AMINO TRANSFERASE 18 U/L (10-37); BILIRUBIN,TOTAL 0.4 MG/DL (0.1-1.0); BLOOD UREA NITROGEN 7 MG/DL (7-18); BUN/CREATININE RATIO 9.5 (6.6-38.0); C-REACTIVE PROTEIN 0.07 MG/DL (0.0-0.5); CALCIUM 8.8 MG/DL (8.5-10.1); CHLORIDE 104 MMOL/L (99-107); CREATININE 0.74 MG/DL (0.40-0.90); GLUCOSE 92 MG/DL (70-104); POTASSIUM 3.5 MMOL/L (3.5-5.1); SODIUM 140 MMOL/L (135-145); TOTAL CARBON DIOXIDE 26.4 MMOL/L (24-32); eGFR 82 ML/MIN
--- NOTE | 2022-03-07 06:34 | NUR ---
reported to days. noted pt painful with sitting up movement, may benefit from toradol if pain persists.
[2022-03-07] MEDS: K and/or MAG REPLACEMENT MC SCH ×2 (08:00→21:28)
--- NOTE | 2022-03-07 08:50 | NUR ---
APPROXIMATELY THIS TIME PATIENT WAS FOUND ON FLOOR IN ROOM BY JULIÁN RN, PATIENT ARMS AND LEGS SHAKING AND LIDYA PRESENT WELL. RAPID CALLED 1 MG ATIVAN GIVEN. AFTER PATIENT IN BED AND SEEMS MORE CALM. PATIENT STATED SHE DOSEN'T REMEBER HOW SHE GOT ON FLOOR AND STATES SHE MAY HAVE "FLIPPED OUT OF BED" DR HUNTER CALLED AND WAITING FOR PSYCH CONSULT
[2022-03-07] MEDS: LORazepam 2 mg/ml vial IV PRN (08:56)
[2022-03-07] MEDS: docusate sod 100mg capsule PO SCH ×2 (09:11→22:24)
[2022-03-07] MEDS: ACYCLOVIR IV SCH ×2 (09:11→17:19)
[2022-03-07] MEDS: buPROPion SR 150mg tablet PO SCH (09:11)
[2022-03-07] MEDS: NORMAL SALINE IV SCH ×2 (09:11→17:19)
[2022-03-07] MEDS: carBAMazepine 100mg chewable tablet PO SCH ×2 (09:12→22:25)
[2022-03-07] MEDS: aspirin 325mg tablet PO SCH (09:12)
[2022-03-07] MEDS: sertraline 50mg tablet PO SCH (09:12)
[2022-03-07] MEDS: gabapentin 400mg capsule PO SCH ×3 (09:12→22:25)
[2022-03-07] MEDS ORDERED: metoclopramide 5 mg/ml inj IV PRN (09:25)
[2022-03-07] MEDS: normal saline 1000ml 1,000 ML IV SCH ×2 (09:37→22:47)
[2022-03-07 10:00] VITALS: BP 124/81
[2022-03-07] MEDS: HYDROcodone/acetaminophen 5mg/325mg tablet PO PRN (15:19)
[2022-03-07 18:00] VITALS: BP 121/84
--- NOTE | 2022-03-07 19:56 | NUR ---
In room to administer patient medications, patient request to have medication before bed. Patient verbalized will use call light to alert nurse when ready. PIV to left wrist found to be alarming pressure high. Upon assessment it was found to be partial out. PIV discontinued at this time with canula intact. New 20g PIV placed to left forearm with 1 attempt.
[2022-03-07 22:00] VITALS: BP 120/86
[2022-03-07] MEDS: HYDROcodone/acetaminophen 10/325mg tab PO PRN (22:25)
[2022-03-08] MEDS: NORMAL SALINE IV SCH ×2 (00:15→08:00)
[2022-03-08] MEDS: ACYCLOVIR IV SCH ×2 (00:15→08:00)
[2022-03-08] MEDS: HYDROcodone/acetaminophen 10/325mg tab PO PRN (05:12)
[2022-03-08 05:53] LABS: BASOPHILS # (AUTO) 0.1 X10'3 (0-0.2); BASOPHILS % (AUTO) 1.5 % (0-1); EOSINOPHILS # (AUTO) 0.1 X10'3 (0-0.9); EOSINOPHILS % (AUTO) 2.6 % (0-6); HEMATOCRIT 33.1 % (35.0-45.0); HEMOGLOBIN 11.3 g/dl (12.0-16.0); LYMPHOCYTES # (AUTO) 1.8 X10'3 (1.1-4.8); LYMPHOCYTES % (AUTO) 36.4 % (21-51); MEAN CORPUSCULAR HEMOGLOBIN 31.4 PG (27.0-31.0); MEAN CORPUSCULAR HGB CONC 34.1 g/dL (33.0-36.5); MEAN CORPUSCULAR VOLUME 91.9 FL (78-98); MEAN PLATELET VOLUME 9.6 FL (7.4-10.4); MONOCYTES # (AUTO) 0.5 X10'3 (0-0.9); MONOCYTES % (AUTO) 10.4 % (2-12); NEUTROPHILS # (AUTO) 2.4 X10'3 (1.8-7.7); NEUTROPHILS % (AUTO) 49.1 % (42-75); PLATELET COUNT 227 X10'3 (140-440); RED CELL DISTRIBUTION WIDTH 14.5 % (11.5-14.5); WHITE BLOOD COUNT 4.8 X10'3 (4.5-11.0)
[2022-03-08 06:00] VITALS: BP 101/63
[2022-03-08 06:10] LABS: ALANINE AMINOTRANSFERASE 19 U/L (12-78); ALBUMIN 3.1 G/DL (3.4-5.0); ALKALINE PHOSPHATASE 60 IU/L (46-116); ANION GAP 7 (8-16); ASPARTATE AMINO TRANSFERASE 19 U/L (10-37); BILIRUBIN,TOTAL 0.2 MG/DL (0.1-1.0); BLOOD UREA NITROGEN 12 MG/DL (7-18); BUN/CREATININE RATIO 15.8 (6.6-38.0); C-REACTIVE PROTEIN 0.08 MG/DL (0.0-0.5); CALCIUM 8.4 MG/DL (8.5-10.1); CHLORIDE 106 MMOL/L (99-107); CREATININE 0.76 MG/DL (0.40-0.90); GLUCOSE 91 MG/DL (70-104); MAGNESIUM 2.1 MG/DL (1.5-2.4); POTASSIUM 4.2 MMOL/L (3.5-5.1); SODIUM 139 MMOL/L (135-145); TOTAL CARBON DIOXIDE 25.8 MMOL/L (24-32); TOTAL PROTEIN 6.1 G/DL (6.4-8.2); eGFR 80 ML/MIN
[2022-03-08] MEDS: K and/or MAG REPLACEMENT MC SCH (08:00)
[2022-03-08] MEDS: sertraline 50mg tablet PO SCH (08:01)
[2022-03-08] MEDS: buPROPion SR 150mg tablet PO SCH (08:01)
[2022-03-08] MEDS: docusate sod 100mg capsule PO SCH (08:01)
[2022-03-08] MEDS: gabapentin 400mg capsule PO SCH (08:01)
[2022-03-08] MEDS: aspirin 325mg tablet PO SCH (08:01)
[2022-03-08] MEDS: carBAMazepine 100mg chewable tablet PO SCH (08:01)
[2022-03-08 10:00] VITALS: BP 120/82
[2022-03-08] MEDS ORDERED: GABA-534 PO (12:02)
[2022-03-08] MEDS ORDERED: CARB100T15 PO (12:02)
--- NOTE | 2022-03-08 15:19 | NUR ---
Patient has been calm with no tremors or flailing observed this shift. At 1445 I went to patient room to or iv. Bilateral arms were flailing. patient demonstrated having to grab a cup with 2 open hands as she had no organic gardening teacher. I clarified she has an appointment with her pmd tomorrow and that he would need to refer her to neurologist as recommended by hospitalist. Patient appeared to be unsteady transferring from bed to wheelchair. I suggested to MOVIE THEATER USHER she use a gait belt to assist patient with transfer. MOVIE THEATER USHER states there was no sign of flailing or unsteadiness transferring from wheel chair to the car. Patient did not require help.
== END 2022-03-08 15:00 | disposition home or self-care (01) | DRG 861 ==
LOC: ER 07:19 → ED HOLD 10:50 → ORTHO 4S 14:10
PROVIDERS: ADMIT Family Medicine; ATTEND Family Medicine
PROC: B3251ZZ Computerized Tomography (CT Scan) of Bilateral Common Carotid Arteries using Low Osmolar Contrast (ICD-10-PCS; principal; 2022-03-04)
PROC: B32G1ZZ Computerized Tomography (CT Scan) of Bilateral Vertebral Arteries using Low Osmolar Contrast (ICD-10-PCS; 2022-03-04)
PROC: B32R1ZZ Computerized Tomography (CT Scan) of Intracranial Arteries using Low Osmolar Contrast (ICD-10-PCS; 2022-03-04)
PROC: B3281ZZ Computerized Tomography (CT Scan) of Bilateral Internal Carotid Arteries using Low Osmolar Contrast (ICD-10-PCS; 2022-03-04)
DX: R53.1 Weakness (principal); F44.4 Conversion disorder with motor symptom or deficit; B19.20 Unspecified viral hepatitis C without hepatic coma; F20.9 Schizophrenia, unspecified; Z20.822 Contact with and (suspected) exposure to COVID-19; F43.10 Post-traumatic stress disorder, unspecified; F41.9 Anxiety disorder, unspecified; G43.909 Migraine, unspecified, not intractable, without status migrainosus; G89.29 Other chronic pain; K21.9 Gastro-esophageal reflux disease without esophagitis; F33.42 Major depressive disorder, recurrent, in full remission; J45.909 Unspecified asthma, uncomplicated; R73.03 Prediabetes; Z78.9 Other specified health status; Z82.3 Family history of stroke; Z82.49 Family history of ischemic heart disease and other diseases of the circulatory system; Z86.19 Personal history of other infectious and parasitic diseases; Z87.11 Personal history of peptic ulcer disease; Z87.442 Personal history of urinary calculi; Z87.891 Personal history of nicotine dependence; Z90.710 Acquired absence of both cervix and uterus; Z98.84 Bariatric surgery status; Z88.0 Allergy status to penicillin; Z88.5 Allergy status to narcotic agent; Z88.2 Allergy status to sulfonamides; Z79.899 Other long term (current) drug therapy; Z78.1 Physical restraint status
CPT/HCPCS: 36415; 70450; 70496; 70498; 70553; 80053; 80305; 81003; 81025; 83605; 83690; 83735; 84100; 84145; 84443; 85025; 85651; 86140; 87040; 87081; 87635; 92508; 92616; 93306; 96361; 96372; 96374; 96375; 97110; 97161; 97530; 99285; A6258; A9575; C9803; G0378; J0133; J1885; J2060; J2270; J2405; J3030; J3490; J7030; J7050; Q9967

== ENCOUNTER 2023-06-16 08:14 | Emergency (ER) | payer SELFPAY ==
[~2023-06-16] VITALS: Ht 167.6 cm; Wt 73.6 kg
[~2023-06-16 08:14] MED LIST changes: -ALB0.5UD IH; -BUPR100T5 PO; +BUPR300T86 PO; -CARB100O PO; +CARB100T15 PO; -ERYT250C69 PO; +GABA-535 PO; -ONDA4TAB12 PO; -PANT-47 PO; -SERT-153 PO; +SERT-434 PO
[2023-06-16] MEDS ORDERED: ondansetron 4mg rapidly disintigrating tab PO ONE (08:25)
[2023-06-16 08:42] VITALS: TEMP 98.4
[2023-06-16 08:54] LABS: STREP A SCREEN NEGATIVE (Neg)
[2023-06-16 09:20] LABS: BASOPHILS # (AUTO) 0.1 X10'3 (0-0.2); EOSINOPHILS # (AUTO) 0.1 X10'3 (0-0.9); HEMOGLOBIN 12.9 g/dl (12.0-16.0); LYMPHOCYTES # (AUTO) 1.2 X10'3 (1.1-4.8); MONOCYTES # (AUTO) 0.3 X10'3 (0-0.9); NEUTROPHILS # (AUTO) 3.2 X10'3 (1.8-7.7); WHITE BLOOD COUNT 4.9 X10'3 (4.5-11.0)
[2023-06-16 09:23] LABS: BASOPHILS % (AUTO) 1.5 % (0-1); EOSINOPHILS % (AUTO) 2.4 % (0-6); HEMATOCRIT 38.2 % (35.0-45.0); LYMPHOCYTES % (AUTO) 24.9 % (21-51); MEAN CORPUSCULAR HGB CONC 33.8 g/dL (33.0-36.5); MEAN CORPUSCULAR VOLUME 91.5 FL (78-98); MEAN PLATELET VOLUME 9.5 FL (7.4-10.4); MONOCYTES % (AUTO) 6.6 % (2-12); NEUTROPHILS % (AUTO) 64.6 % (42-75); PLATELET COUNT 322 X10'3 (140-440); RED BLOOD COUNT 4.17 X10'6 (4.20-5.60); RED CELL DISTRIBUTION WIDTH 14.5 % (11.5-14.5)
[2023-06-16 09:28] LABS: ALANINE AMINOTRANSFERASE 20 U/L (12-78); ALBUMIN 3.7 G/DL (3.4-5.0); ALKALINE PHOSPHATASE 84 IU/L (46-116); ANION GAP 12 (8-16); ASPARTATE AMINO TRANSFERASE 15 U/L (10-37); BILIRUBIN,TOTAL 0.6 MG/DL (0.1-1.0); BLOOD UREA NITROGEN 13 MG/DL (7-18); BUN/CREATININE RATIO 14.4 (10.0-20.0); CALCIUM 9.1 MG/DL (8.5-10.1); CHLORIDE 106 MMOL/L (99-107); GLUCOSE 131 MG/DL (70-104); MAGNESIUM 1.9 MG/DL (1.5-2.4); POTASSIUM 3.7 MMOL/L (3.5-5.1); SODIUM 141 MMOL/L (135-145); TOTAL CARBON DIOXIDE 23.3 MMOL/L (24-32); TOTAL PROTEIN 7.3 G/DL (6.4-8.2); eCRCL 68 ML/MIN; eGFR 65 ML/MIN
[2023-06-16 09:40] LABS: BILIRUBIN,URINE NEGATIVE (Neg); CLARITY,URINE CLEAR (Clear); COLOR,URINE YELLOW (Yellow); GLUCOSE, URINE NEGATIVE (Neg); KETONES,URINE NEGATIVE (Neg); LEUKOCYTE ESTERASE ,URINE NEGATIVE (Neg); NITRITES, URINE NEGATIVE (Neg); OCCULT BLOOD,URINE TRACE-INTACT (Neg); PH,URINE 5.5 (4.8-8.0); PROTEIN,URINE NEGATIVE (Neg); UROBILINOGEN,URINE 0.2 E.U/dL (0.2-1.0)
[2023-06-16 09:41] LABS: UA COLLECTION TYPE CLN CATCH MIDSTREAM
[2023-06-16 09:49] LABS: MUCUS STRANDS MANY /LPF (Neg); SQUAMOUS EPITHELIAL CELL,UR MANY /LPF (FEW)
[2023-06-16 09:50] LABS: FINE GRANULAR CAST 0-3 /LPF (NEGATIVE)
[2023-06-16 09:52] LABS: BACTERIA,URINE 1+ /HPF (Neg)
[2023-06-16 09:53] LABS: RBC,URINE 0-2 /HPF (0-2); WBC,URINE 0-4 /HPF (0-4)
[2023-06-16 12:42] VITALS: BP 108/78; PULSE 75; RESP 16; O2SAT 99
== END 2023-06-16 12:40 | disposition home or self-care (01) ==
LOC: ER 08:15
DX: B34.9 Viral infection, unspecified (principal); Z20.822 Contact with and (suspected) exposure to COVID-19; K21.9 Gastro-esophageal reflux disease without esophagitis; J45.909 Unspecified asthma, uncomplicated; F31.9 Bipolar disorder, unspecified; F20.9 Schizophrenia, unspecified; F12.10 Cannabis abuse, uncomplicated; Z79.899 Other long term (current) drug therapy; Z88.0 Allergy status to penicillin; Z88.2 Allergy status to sulfonamides; Z88.8 Allergy status to other drugs, medicaments and biological substances; Z88.5 Allergy status to narcotic agent
CPT/HCPCS: 36415; 70450; 80053; 81001; 83735; 85025; 87081; 87502; 87503; 87811; 87880; 93005; 99285

== ENCOUNTER 2024-03-26 13:22 | Emergency (ER) | payer OTHER ==
[~2024-03-26] VITALS: Ht 167.6 cm; Wt 76.2 kg
[~2024-03-26 13:22] MED LIST changes: +BUPR-564 PO; -BUPR300T86 PO
[2024-03-26 13:38] VITALS: BP 109/81; PULSE 79; TEMP 97.8; O2SAT 98
[2024-03-26] MEDS ORDERED: PRED20TA PO (15:04)
[2024-03-26] MEDS ORDERED: CYCL-1 PO (15:04)
[2024-03-26] MEDS ORDERED: LIDO700A32 TOP (15:04)
[2024-03-26] MEDS: ondansetron 4mg rapidly disintigrating tab PO ONE (15:27)
[2024-03-26] MEDS: cyclobenzaprine 10mg tablet PO ONE (15:27)
[2024-03-26] MEDS: HYDROcodone/acetaminophen 5mg/325mg tablet PO ONE (15:27)
[2024-03-26 15:28] VITALS: RESP 16
[2024-03-26] MEDS: dexamethasone sod phosphate 10mg/ml inj IM STA (15:28)
[2024-03-26] MEDS: ketorolac trometh 30MG/ML vial 30 MG/ML VIAL IM ONE (15:28)
== END 2024-03-26 15:50 | disposition home or self-care (01) ==
LOC: ER 13:23
DX: S40.012A Contusion of left shoulder, initial encounter (principal); S20.212A Contusion of left front wall of thorax, initial encounter; G43.909 Migraine, unspecified, not intractable, without status migrainosus; J45.909 Unspecified asthma, uncomplicated; G89.29 Other chronic pain; F41.9 Anxiety disorder, unspecified; F32.A Depression, unspecified; F20.9 Schizophrenia, unspecified; M54.2 Cervicalgia; I10 Essential (primary) hypertension; K21.9 Gastro-esophageal reflux disease without esophagitis; E11.9 Type 2 diabetes mellitus without complications; Z88.0 Allergy status to penicillin; Z88.2 Allergy status to sulfonamides; Z88.5 Allergy status to narcotic agent; Z79.899 Other long term (current) drug therapy; Z98.890 Other specified postprocedural states; Z90.49 Acquired absence of other specified parts of digestive tract; Z88.1 Allergy status to other antibiotic agents; Z90.710 Acquired absence of both cervix and uterus; Z95.1 Presence of aortocoronary bypass graft; V89.2XXA Person injured in unspecified motor-vehicle accident, traffic, initial encounter; Y93.89 Activity, other specified; Y92.89 Other specified places as the place of occurrence of the external cause; Y99.8 Other external cause status
CPT/HCPCS: 71101; 73030; 96372; 99284; J1100; J1885

== ENCOUNTER 2024-03-29 06:38 | Emergency (ER) | payer OTHER ==
[~2024-03-29] VITALS: Ht 167.6 cm; Wt 75.5 kg
[~2024-03-29 06:38] MED LIST changes: +CYCL-1 PO; +LIDO700A32 TOP; +PRED20TA PO
[2024-03-29 06:41] VITALS: TEMP 98.5
[2024-03-29] MEDS: ketorolac trometh 30MG/ML vial 30 MG/ML VIAL IM ONE (07:01)
[2024-03-29] MEDS: HYDROmorphone 1 mg/ml syringe IM ONE (07:02)
[2024-03-29] MEDS ORDERED: OXYC-658 PO (07:17)
[2024-03-29] MEDS: LIDOcaine 5% patch TP STA (07:31)
[2024-03-29 07:45] VITALS: BP 115/79; PULSE 76; RESP 16; O2SAT 96
== END 2024-03-29 07:51 | disposition home or self-care (01) ==
LOC: ER 06:39
DX: R07.89 Other chest pain (principal); M25.512 Pain in left shoulder; J45.909 Unspecified asthma, uncomplicated; K21.9 Gastro-esophageal reflux disease without esophagitis; F41.9 Anxiety disorder, unspecified; F32.A Depression, unspecified; E11.9 Type 2 diabetes mellitus without complications; F20.9 Schizophrenia, unspecified; I21.9 Acute myocardial infarction, unspecified; Z88.0 Allergy status to penicillin; Z88.1 Allergy status to other antibiotic agents; Z88.2 Allergy status to sulfonamides; Z88.5 Allergy status to narcotic agent; Z87.11 Personal history of peptic ulcer disease; Z90.710 Acquired absence of both cervix and uterus; Z98.890 Other specified postprocedural states
CPT/HCPCS: 71045; 93005; 96372; 99284; J1171; J1885; J7030

== ENCOUNTER 2025-04-08 07:34 | Emergency (ER) | payer MEDICAID, OTHER ==
[~2025-04-08] VITALS: Ht 167.6 cm; Wt 75.9 kg
[~2025-04-08 07:34] MED LIST changes: +BUPR-480 PO; -BUPR-564 PO; +LIDO-52 TOP; -LIDO700A32 TOP; -PRED20TA PO
[2025-04-08 07:39] VITALS: TEMP 98.1
--- NOTE | 2025-04-08 08:20 | Physician Documentation ---
History of Present Illness General Chief Complaint: Abscess Stated Complaint: ABSCESS Time Seen by MD: 08:20 OK to notify your PCP?: No Primary Medical Doctor: Sophy Guzman Source: patient, RN notes reviewed Mode of Arrival: POV Exam Limitations: no limitations History of Present Illness Initial Comments 54-year-old female presents complaining of an area of redness, swelling, and pain to the left groin that began over the last 3-4 days. Pain radiates down the leg and into the groin. Over the last couple of days the area became warm to the touch. Patient states she has had "a small bump to the area for the last year before more recent symptoms began. She denies any fever. She does not smoke cigarettes. Medication Reconciliation Allergies: Coded Allergies: Penicillins (Verified Allergy, Unknown, RASH, 04/08/25) sulfamethoxazole (Verified Allergy, Unknown, 04/08/25) trimethoprim (Verified Allergy, Unknown, 04/08/25) codeine (Verified Adverse Reaction, Mild, UPSET STOMACH, 04/08/25) Scheduled Bupropion HCl (Bupropion Xl), 1 TAB PO QAM, (Reported) Carbamazepine (Carbamazepine), 200 MG PO BID Cyclobenzaprine* (Cyclobenzaprine*), 1 TAB PO HS Doxycycline Monohydrate (Doxycycline Monohydrate), 100 MG PO BID Gabapentin (Gabapentin), 400 MG PO Q12H Lidocaine (Lidoderm), 1 PATCH TOP DAILY Sertraline HCl (Sertraline HCl), 1.5 TAB PO DAILY, (Reported) Past Medical History Past Medical History: Migraine, Asthma, *GI/HEPATOBILIARY*, GERD, Hepatitis C, Pancreatitis, Peptic Ulcer Disease, Liver Disease, Acute Kidney Injury, Hernia, Kidney Stones, Diabetes, Chronic Back Pain, Herpes Zoster, Anxiety, Depression, Schizophrenia Past Surgical History: abdominal surgery, , hysterectomy, other Other Past Surgical History: nephrostomy, hernia repair, cardiac cath Smoking: Quit less than 1 year Alcohol Use: None Drug Use: marijuana Lives with: Mother, Family Lives In: Home Occupation: employed Past Social History: Polysubstance Abuse Review of Systems All Other Systems at this time: Reviewed and Negative ROS Pain and redness to the left groin as well as other positive symptoms as stated above in the HPI, otherwise all systems are reviewed and negative. Physical Exam Physical Exam Vital Signs: RN Vital Signs have been reviewed: Yes, Temperature: 98.1, Source: Oral, Heart Rate: 88, Respiratory Rate: 18, BP: 115/86, Pulse Oximetry: 97, Weight: 75.900 Oxygen Flow Rate: 0 Pulse Oximetry Reflects: adequate oxygenation Physical Exam VITALS: Reviewed and as above. GENERAL: Alert, no apparent distress. HEENT: Normocephalic, atraumatic, PERRL, EOMI, dry mucosa RESPIRATORY: Lungs clear, normal breath sounds, no respiratory distress. CHEST: No accessory muscle use, no retractions CV: Regular rate, rhythm, no edema, no murmur, No: JVD MUSCULOSKELETAL:No deformities, no edema SKIN: 3cm fluctuance mass to left inguinal fold with 4x4cm of surrounding erythema, tender. Warm and dry, no rash NEURO: Oriented x4, No motor or sensory deficit PSYCH: Normal mood and affect, no agitation Procedures I & D Procedure : Site: Left inguinal area Anesthesia: Lidocaine w/ Epi Volume Anesthetic (mls): 9 Blade Size: 11 Prep/Supplies: betadine prep, dressing applied, packing placed (Quarter-inch iodoform) Incision: pus drained, blood drained Tolerated Procedure Well?: yes, no complications Progress Results/Orders Results/Orders Orders - OHRENEE JEWELL MD Laceration/I&D Tray Set Up (04/08/25 08:36) General Nursing Order (04/08/25 08:36) Completed Orders - RENEE NASH MD Lidocaine 1% W/Epi 1:100,000 (Xylocaine (04/08/25 08:40) Doxycycline 100mg Capsule (Vibramycin 10 (04/08/25 09:34) Vital Signs 04/08/25 04/08/25 07:39 09:48 Temp 98.1 Pulse 88 73 Resp 18 18 B/P (MAP) 115/86 129/67 (87) Pulse Ox 97 97 O2 Flow Rate 0 0 Medical Decision Making Additional information obtaine: old records (Seen one year ago for chest wall pain) Findings 54-year-old female with a small abscess, the patient verbally consented for incision and drainage the patient had lidocaine with epinephrine infiltrated into the wound and the wound was incised and drained, the patient is nontoxic the patient will be treated with oral antibiotics. The patient's prior hospitalizations have been reviewed the patient's pulse oximetry was interpreted as normal and adequate the patient will be discharged Differential Diagnosis Cellulitis, sepsis, abscess Departure Disposition: 01 HOME / SELF CARE / HOMELESS Impression: Primary Impression: Abscess Condition: Stable Discharge Instructions: Skin Abscess, [id number] Additional Instructions: Take and complete the full course of antibiotics as prescribed. Follow up with your regular doctor in the next week. May take [id number] Tylenol and/or ibuprofen for mild pain. Return to the ER for worsening redness, worsening pain, fever, or any other concerns. Prescriptions Doxycycline Monohydrate (Doxycycline Monohydrate) 100 Mg Capsule 100 MG PO BID, #14 CAP may sub doxycycline hyclate Prov: RENEE NASH MD 04/08/25 Education Educated: Patient Educated regarding: diagnosis, treatment, need for follow up Signature Scribe Signature: Scribed for Renee Nash MD by Vincent Love . 04/08/25 08:59 Attestation: The note accurately reflects work and decisions made by me.Renee Nash MD 04/08/25 17:46 RENEE NASH MD Apr 08, 2025 08:20 VINCENT COFFMAN Apr 08, 2025 08:58
[2025-04-08] MEDS: LIDOcaine 1% W/epiNEPHrine 1:100,000 20ml vial IJ ONE (09:34)
[2025-04-08] MEDS: DOXYCYCLINE 100MG CAPSULE PO STA (09:40)
[2025-04-08] MEDS ORDERED: DOXY100C43 PO (09:43)
[2025-04-08 09:48] VITALS: BP 129/67; PULSE 73; RESP 18; O2SAT 97
== END 2025-04-08 09:53 | disposition home or self-care (01) ==
LOC: ER 07:34
DX: L02.214 Cutaneous abscess of groin (principal); E11.9 Type 2 diabetes mellitus without complications; F41.9 Anxiety disorder, unspecified; F32.A Depression, unspecified; K21.9 Gastro-esophageal reflux disease without esophagitis; F20.9 Schizophrenia, unspecified; J45.909 Unspecified asthma, uncomplicated; F12.90 Cannabis use, unspecified, uncomplicated; F19.10 Other psychoactive substance abuse, uncomplicated; Z88.0 Allergy status to penicillin; Z88.1 Allergy status to other antibiotic agents; Z88.2 Allergy status to sulfonamides; Z88.5 Allergy status to narcotic agent; Z88.8 Allergy status to other drugs, medicaments and biological substances; Z90.710 Acquired absence of both cervix and uterus; Z98.890 Other specified postprocedural states
CPT/HCPCS: 10060; 99283